=== PATIENT | female | born 1950 | race Caucasian/White ===

== ENCOUNTER 2020-04-30 16:31 | Outpatient (CLI) | payer MEDICARE, OTHER, SELFPAY ==
--- NOTE | ~2020-04-30 | MM_ITS ---
EXAMINATION: MM screening latesha BI w miguel HISTORY: Screening mammogram TECHNIQUE: Craniocaudal and mediolateral oblique 3-D tomosynthesis images were obtained and synthetic 2-D images were generated. CAD analysis was submitted and interpreted. COMPARISON: 12/06/2017, 11/08/2017, 01/04/2016, 11/06/2015 BREAST PARENCHYMAL COMPOSITION: There are scattered areas of fibroglandular density. FINDINGS: Scattered benign-appearing calcifications are present. There is no evidence of suspicious m ass, calcification, or architectural distortion to suggest malignancy in either breast. There has bee n no suspicious interval change. IMPRESSION: 1. No mammographic evidence of malignancy. 2. Recommend routine screening mammography in one year. BI-RADS Category 2: Benign finding(s). Reviewed, dictated and finalized at location A.
== END 2020-04-30 16:32 | disposition home or self-care (01) ==
PROVIDERS: PCP Family Medicine; Visit Provider Family Medicine
DX: Z12.31 Encounter for screening mammogram for malignant neoplasm of breast (principal)
CPT/HCPCS: 77063; 77067

== ENCOUNTER → 2020-06-11 14:19 | Outpatient (CLI) | payer MEDICARE, OTHER, SELFPAY ==
--- NOTE | ~2020-06-11 | CT_ITS ---
EXAMINATION: CT abdomen w con DATE: 06/11/2020 14:53 INDICATION: Left upper quadrant abdominal pain. Epigastric swelling, mass or lump TECHNIQUE: Computed tomography (CT) of the abdomen was performed with 100 cc Omnipaque 350 intravenou s contrast. Automated exposure control and iterative reconstruction technique were employed. Exam dos e: 343.59 mGy-cm total exam DLP. COMPARISON: 07/22/2015 CT abdomen pelvis FINDINGS: There is focal discoid scarring with calcification in the posterior right lung base, right lower lobe. The lower lung zones are clear of active infiltrate or consolidation. Normal heart size. No pericardial or pleural effusion. The liver, gallbladder, bile ducts, pancreas, pancreatic duct, pancreatic calcification. There are mu ltiple calcified splenic granulomas. Normal splenic size. No adrenal mass lesion. There are scattered right renal cysts, the largest approximately 11 mm. There is a small upper pole l eft renal cyst and an approximate 6.2 cm lower pole left renal cyst. No urinary tract calculus or hydroureteronephrosis is detected. There is atherosclerotic calcification but normal caliber of the abdominal aorta. No intraperitoneal or retroperitoneal mass lesion or adenopathy or ascites. Diverticulosis of left and right colon. No bowel obstruction. Small fat-containing umbilical hernia. There is degenerative change of the apophyseal joints with associated grade 1 anterolisthesis at at L3-4 and L4-5. There is severe degenerative disc disease at L5-S1 with associated minimal retrolisthesis. IMPRESSION: Bilateral renal cysts Diverticulosis of left and right colon Reviewed, dictated and finalized at Location A. Reviewed, dictated and finalized at location A. RUCTIONAL MANAGER
[2020-06-11 14:39] LABS: Estimated Glomerular Filt Rate 55
== END ==
PROVIDERS: PCP Family Medicine; Visit Provider Family Medicine
DX: R19.06 Epigastric swelling, mass or lump (principal); N28.1 Cyst of kidney, acquired; K57.30 Diverticulosis of large intestine without perforation or abscess without bleeding
CPT/HCPCS: 74160; Q9967

== ENCOUNTER → 2021-06-02 14:57 | Outpatient (CLI) | payer MEDICARE, OTHER, SELFPAY ==
--- NOTE | ~2021-06-02 | MR_ITS ---
EXAMINATION: MR brain/brain stem wo/w con EXAM DATE: 06/02/2021 16:31 INDICATION: Benign neoplasm of cerebral meninges. TECHNIQUE: Magnetic resonance imaging (MRI) of the brain/brain stem obtained without contrast. Sagit vishal T1, axial diffusion, gradient echo (T2*), T1, T2, FLAIR sequences obtained. Patient was then inj ected with 14 cc intravenous Multihance contrast. Axial and coronal postcontrast T1 weighted sequence s obtained. Comparison is made to prior examination from 07/26/2013. FINDINGS: There is an extra-axial mass overlying the right frontal lobe consistent with meningioma me asuring about 1.2 cm in thickness by 2.3 cm diameter. The size and appearance to this is not signific antly changed compared to 2013. This enhances avidly as would be expected. There is another much smal ler extra-axial lesion in the right supraclinoid region probably meningioma, may have minimally incre ased in size, measuring about 6 x 11 mm as measured on the coronal sequence. No other areas of abnorm al enhancement. There is been mild progression in the mild to moderate microangiopathy There are no areas of restrict ed diffusion to suggest acute infarction. There is no acute hemorrhage seen on the T2*, a hemosideri n sensitive sequence. No intraparenchymal brain mass. The ventricles are normal in size. There are no extra-axial collections. Flow voids are seen in the cerebral arteries on the T2-weighted sequence s consistent with their expected patency. The orbits are unremarkable. Soft tissue is unremarkable. IMPRESSION: 1. 2 extra-axial lesions consistent with meningiomas, largest stable in smallest may have minimally increased in size compared to 2012. 2. 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 Reviewed, dictated and finalized at location A. IMPRESSION: 1. 2 extra-axial lesions consistent with meningiomas, largest stable in [place] st may have minimally increased in size compared to 2012. 2. 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
[2021-06-02 15:47] LABS: Estimated Glomerular Filt Rate 45
== END ==
PROVIDERS: PCP Family Medicine
DX: D32.0 Benign neoplasm of cerebral meninges (principal)
CPT/HCPCS: 70553; A9577

== ENCOUNTER → 2021-07-28 13:53 | Outpatient (CLI) | payer MEDICARE, OTHER, SELFPAY ==
--- NOTE | ~2021-07-28 | MM_ITS ---
EXAMINATION: MM screening latesha BI w miguel HISTORY: Screening TECHNIQUE: Craniocaudal and mediolateral oblique 3-D tomosynthesis images were obtained and synthetic 2-D images were generated. CAD analysis was submitted and interpreted. COMPARISON: Comparison to multiple prior studies sequentially, with oldest reviewed study dated 11/08. BREAST PARENCHYMAL COMPOSITION: There are scattered areas of fibroglandular density. FINDINGS: There is no evidence of suspicious mass, calcification, or architectural distortion to sugg est malignancy in either breast. There has been no suspicious interval change. IMPRESSION: 1. No mammographic evidence of malignancy. 2. Recommend routine screening mammography in one year. BI-RADS Category 1: Negative Reviewed, dictated and finalized at location A. DRIER OPERATOR
--- NOTE | ~2021-07-28 | DEXA_ITS ---
Bone Density Report Name: VALENTE URIOSTEGUI Age: 70 Sex: Female Ethnicity: White Date of : 1950 Indication: postmenopausal; screening for osteoporosis; height loss; Referring Provider: CHATO MURCIA Study: Bone densitometry was performed. Exam Date: July 28, 2021 Accession number: [id number] Bone Density: Region BMD T-score Z-score Classification AP Spine (L1-L4) 0.942 -1.0 1.1 Normal Femoral Neck (Left) 0.741 -1.0 0.8 Normal Total Hip (Left) 0.881 -0.5 0.9 Normal Femoral Neck (Right) 0.655 -1.7 0.0 Osteopenia Total Hip (Right) 0.820 -1.0 0.4 Normal Total Hip Mean 0.851 -0.8 0.7 Normal World Health Organization criteria for BMD impression classify patients as: Normal (T-score at or above -1.0), Osteopenia (T-score between -1.0 and -2.5), or Osteoporosis (T-score at or below -2.5). 10-year Fracture Risk(1): Major Osteoporotic Fracture 10% Hip Fracture 1.5% Reported Risk Factors: [place] (), Neck BMD=0.655, BMI=28.6 (1) FRAX(R) Version 3.08. Fracture probability calculated for an untreated patient. Fracture probability may be lower if the patient has received treatment. Previous Exams: Region Exam Age BMD T-score BMD Change BMD Change Date g/cm2 vs Baseline vs Previous AP Spine(L1-L4) 07/28/2021 70 0.942 -1.0 -0.101* -0.101* 11/19/2007 57 1.044 0.0 Total Hip(Left) 07/28/2021 70 0.881 -0.5 -0.138* -0.138* 11/19/2007 57 1.020 0.6 Total Hip(Right) 07/28/2021 70 0.820 -1.0 -0.186* -0.186* 11/19/2007 57 1.006 0.5 *Denotes significance at 95% confidence level, LSC for AP Spine = 0.022 g/cm2, LSC for Total Hip = 0.027 g/cm2 Clinical Information Provided by Patient: Patient maximum height was 64.0 Menopause Age: 46 No regular weight bearing exercise Does not regularly consume dairy products Onset of menses at age 15 Number of children 2 Impression: The patient has low bone mass, based on the Right Femoral Neck T-score. The patient has an estimated ten-year risk of hip fracture of 1.5% and an estimated ten-year risk of major fracture of 10%, based on the WHO FRAX algorithm. The BMD for the AP Spine(L1-L4) decreased, changing by -0.101 since the last DXA exam. The BMD for the Total Hip(Left) decreased, changing by -0.138 since the last DXA exam. The BMD for the Total Hip(Right) decreased, changing by -0.186 since the last DXA exam. Yuliau
--- NOTE | ~2021-07-28 | XR_ITS ---
EXAMINATION: XR chest 2V DATE: 07/28/2021 15:03 INDICATION: Chronic cough. TECHNIQUE: Frontal and lateral views of the chest were obtained. COMPARISON: Chest 2 views 04/15/2019, CT abdomen 06/11/2020 FINDINGS: A calcified right lung nodule and calcified right hilar and mediastinal lymph nodes are con sistent with old granulomatous disease. No pleural effusion or pneumothorax. The heart size is normal . IMPRESSION: 1. No acute cardiopulmonary disease. Reviewed, dictated and finalized at location D. RAM ANALYST
--- NOTE | ~2021-07-28 | XR_ITS ---
EXAMINATION: XR knee RT min 4V DATE: 07/28/2021 15:03 INDICATION: Age-related osteoporosis. Right knee instability. TECHNIQUE: 4 views of right knee including standing views were obtained. COMPARISON: None. FINDINGS: Bone alignment is normal. No fracture. There is mild tricompartmental osteoarthritis. There is chondrocalcinosis of the menisci. No knee joint effusion. IMPRESSION: 1. Mild right knee osteoarthritis. Reviewed, dictated and finalized at location D. IER SUPERVISOR
== END ==
PROVIDERS: PCP Family Medicine; Visit Provider Family Medicine
DX: Z12.31 Encounter for screening mammogram for malignant neoplasm of breast (principal); M81.0 Age-related osteoporosis without current pathological fracture; Z13.820 Encounter for screening for osteoporosis; Z78.0 Asymptomatic menopausal state; M17.11 Unilateral primary osteoarthritis, right knee; M85.851 Other specified disorders of bone density and structure, right thigh
CPT/HCPCS: 71046; 73564; 77063; 77067; 77080

== ENCOUNTER 2021-11-05 01:19 | Day surgery (SDC) | payer MEDICARE, OTHER, SELFPAY ==
[2021-10-28 14:01] VITALS: BMI 26.6
--- NOTE | 2021-11-05 12:40 | WPDANESEPPF ---
Anes - Initial Pre Proc Eval Procedure: Operation Date: 11/05/21 13:30 Proposed Procedures p Esophagogastroduodenoscopy & Screening Colonoscopy - Humphrey Gibson MD Date/Time: 11/05/21 12:40 Surgeon: Humphrey Gibson MD Pre Op Diagnosis: hx of colon polyps, epigastric pain Patient Data Age: 71 Gender: F Height: 1.57 m Weight: 66 kg Allergies Allergy/AdvReac Type Severity Reaction Status Date / Time benazepril Allergy Severe Other Verified 11/05/21 12:28 erythromycin base Allergy Severe Abdominal Verified 11/05/21 12:28 Pain influenza virus vaccine, Allergy Severe Other Verified 11/05/21 12:28 specific nitrofurantoin Allergy Severe Chest Pain Verified 11/05/21 12:28 ondansetron Allergy Severe violent Verified 11/05/21 12:28 wretching Penicillins Allergy Severe Hives / Verified 11/05/21 12:28 Red Face pregabalin Allergy Severe inability Verified 11/05/21 12:28 to urinate after two doses azithromycin Allergy Intermediate Hives Verified 10/28/21 14:07 cefadroxil Allergy Intermediate Rash Verified 11/05/21 12:28 GREG Inhibitors Allergy Unknown Unknown Verified 11/05/21 12:28 amlodipine Allergy Unknown Unknown Verified 11/05/21 12:28 Cephalosporins Allergy Unknown Unknown Verified 09/16/21 14:31 poison jsuto extract Allergy Blister Verified 11/05/21 12:28 potassium AdvReac Severe Diarrhea Verified 11/05/21 12:28 rofecoxib AdvReac Severe severe Verified 11/05/21 12:28 abdominal pain omeprazole AdvReac Intermediate angina, Verified 11/05/21 12:28 muscle pain left thigh, left hip pain, simethicone AdvReac Diarrhea Verified 11/05/21 12:28 Contrast Media Allergy Severe Other Uncoded 11/05/21 12:28 CALCIUMCHANNEL Allergy Unknown Unknown Uncoded 06/01/21 13:50 Home Medications Medication Instructions Recorded Confirmed Type carvedilol 12.5 mg tablet 12.5 mg PO TID tablet 09/02/19 10/28/21 History diazepam 5 mg tablet 2.5 mg PO TID PRN tablet 09/02/19 10/28/21 History losartan 25 mg tablet 50 mg PO BID 09/02/19 11/05/21 History pravastatin 10 mg tablet 10 mg PO DAILY 09/02/19 10/28/21 History hydrochlorothiazide 12.5 mg tablet See Rx Instructions .ROUTE 04/15/21 10/28/21 Rx .COMPLEX #90 tablet famotidine 20 mg tablet 20 mg PO Q12H #180 tablet 06/01/21 10/28/21 Rx pantoprazole 40 mg tablet,delayed 40 mg PO QAM #90 tablet 06/01/21 10/28/21 Rx release calcium carbonate 260 mg calcium 260 mg PO BID tablet 09/16/21 10/28/21 History (650 mg) chewable tablet cholecalciferol (vitamin D3) 1,000 unit PO DAILY 10/28/21 10/28/21 History [Vitamin D3] meloxicam 15 mg PO DAILY PRN 10/28/21 10/28/21 History acetaminophen [Tylenol Ex Str 500 mg PO Q6H PRN 11/05/21 11/05/21 History Arthritis Pain] etodolac [Lodine] 400 mg PO BID PRN 11/05/21 11/05/21 History metformin 500 mg PO DAILY 11/05/21 11/05/21 History Patient hx anesthesia problems: none Family hx anesthesia problems: none Results Review: All pre-operative results and documents have been reviewed as part of the pre-operative evaluation. [facility] Surgical History Surgical History (Updated 09/16/21 @ 14:39 by Christiana Sims [facility]) History of lumpectomy History of spinal surgery Family History Family History Father Hypertension Carcinoma of colon Malignant neoplasm of prostate Mother Hypertension Grandparent Family history of cardiovascular disease Cerebrovascular accident Social History Social History Smoking status: Never smoker Second hand tobacco smoke exposure: No Alcohol intake: never Substance use: never Substance use type: does not use Living arrangements: with family Spiritual care concerns: No Anes - Eval Final PreProcedure Day of Procedure 11/05/21 12:40 Patient weight: overweight Heart: regular rate and rhythm Lungs: clear to aus
[2021-11-05] MEDS: LACTATED RINGERS 1,000 ML 150 ML IV CONT (12:56)
[2021-11-05 12:57] VITALS: BP 178/90; PULSE 54; RESP 20; TEMP 37.2; O2SAT 98; BMI 26.4
[2021-11-05 13:06] LABS: Glucose Point of Care 99 mg/dl (65-105)
--- NOTE | 2021-11-05 13:06 | WPDGICN ---
Assessment and Plan Assessment and plan (1) Family history of colon cancer in father: Code(s): Z80.0 - Family history of malignant neoplasm of digestive organs Status: Acute Assessment and Plan: Patient's father had colorectal cancer. For this reason screening colonoscopy at 5 year intervals is advised. This is anticipated today. (2) History of colon polyps: Code(s): Z86.010 - Personal history of colonic polyps Status: Acute Assessment and Plan: Patient has a history of colon polyps being identified on previous exam apparently performed [address] Hawthorne. Follow-up will be performed at this time. (3) GERD (gastroesophageal reflux disease): Code(s): K21.9 - Gastro-esophageal reflux disease without esophagitis Status: Acute Assessment and Plan: Patient has a history of esophageal web dilated 2013. There was a question of Barretts esophagus and GE reflux in the past. Currently maintained on pantoprazole supplemented with famotidine. Further recommendations will be given after endoscopy. This appears unlikely to correlate with her left posterior chest pain however. (4) Brain tumor: Code(s): D49.6 - Neoplasm of unspecified behavior of brain Status: Acute GI Consult Note Consult date/time: 11/05/21 13:06 HPI: Helena Kc is a 71 year old female Presents for colonoscopy and EGD. Patient currently complains of left posterior low chest pain. Pain is somewhat poorly described. It is uncertain whether or is related to the GI tract. She currently is receiving a trial of Protonix and famotidine with no clear benefit for this discomfort. Patient gives a history of EGD in 2013 that revealed distal esophageal web. Apparently there was a question of Barretts esophagus at that time. She presents today for follow-up EGD. Additionally patient has a family history of colorectal cancer in her father. Most recent colonoscopy 2013 Revealed benign colon polyp. Patient presents today for follow-up colonoscopy. She has intermittently had diarrhea in the past. She is uncertain as to the etiology. At 1 point told she may have irritable bowel syndrome. Previously was on metformin it was felt this may contribute to her diarrhea as well. Review of Systems Review of Systems: All systems reviewed & are unremarkable except as noted in HPI and below [facility] Surgical History Surgical History (Updated 09/16/21 @ 14:39 by Christiana Sims [facility]) History of lumpectomy History of spinal surgery Family History Family History Father Hypertension Carcinoma of colon Malignant neoplasm of prostate Mother Hypertension Grandparent Family history of cardiovascular disease Cerebrovascular accident Social History Social History Smoking status: Never smoker Second hand tobacco smoke exposure: No Alcohol intake: never Substance use: never Substance use type: does not use Living arrangements: with family Spiritual care concerns: No Meds Home Medications and Allergies Home Medications Medication Instructions Recorded Confirmed Type carvedilol 12.5 mg tablet 12.5 mg PO TID tablet 09/02/19 10/28/21 History diazepam 5 mg tablet 2.5 mg PO TID PRN tablet 09/02/19 10/28/21 History losartan 25 mg tablet 50 mg PO BID 09/02/19 11/05/21 History pravastatin 10 mg tablet 10 mg PO DAILY 09/02/19 10/28/21 History hydrochlorothiazide 12.5 mg tablet See Rx Instructions .ROUTE 04/15/21 10/28/21 Rx .COMPLEX #90 tablet famotidine 20 mg tablet 20 mg PO Q12H #180 tablet 06/01/21 10/28/21 Rx pantoprazole 40 mg tablet,delayed 40 mg PO QAM #90 tablet 06/01/21 10/28/21 Rx release calcium carbonate 260 mg calcium 260 mg PO BID tablet 09/16/21 10/28/21 History (650 mg) chewable tablet cholecalciferol (vitamin D3) 1,000 unit PO DAILY 10/28/21 10/28/21 Histo
--- NOTE | 2021-11-05 13:41 | SUR.OPER ---
EGD START: 1322; END: 1324. COLONOSCOPY START: 1329; END: 1340.
[2021-11-05 13:42] VITALS: BP 114/60; PULSE 59; RESP 20; O2SAT 97
[2021-11-05 13:52] VITALS: BP 133/69; PULSE 48; RESP 13; O2SAT 100
[2021-11-05 14:02] VITALS: BP 156/80; PULSE 48; RESP 15; O2SAT 100
== END 2021-11-05 14:40 | disposition home or self-care (01) ==
PROVIDERS: PCP Family Medicine; Visit Provider Internal Medicine Gastroenterology
PROC: 0DJ08ZZ Inspection of Upper Intestinal Tract, Via Natural or Artificial Opening Endoscopic (ICD-10-PCS; CPT 43235; principal; 2021-11-05 13:30)
DX: Z12.11 Encounter for screening for malignant neoplasm of colon (principal); R07.89 Other chest pain; K21.00 Gastro-esophageal reflux disease with esophagitis, without bleeding; K57.30 Diverticulosis of large intestine without perforation or abscess without bleeding; D49.6 Neoplasm of unspecified behavior of brain; K64.8 Other hemorrhoids; Z79.899 Other long term (current) drug therapy; Z80.0 Family history of malignant neoplasm of digestive organs
CPT/HCPCS: 43239; G0105; 82948; 87081; J2001; J2704; J7120

== ENCOUNTER 2022-01-12 15:31 | Emergency (ER) | payer MEDICARE, OTHER, SELFPAY ==
[2022-01-12 15:44] VITALS: BP 171/94; PULSE 50; RESP 18; TEMP 37.2; O2SAT 99
--- NOTE | 2022-01-12 15:44 | ED.EAR ---
HPI - Ear Problem General Chief complaint: Ear Stated complaint: Rt Ear Pain and unable to hear Time Seen by Provider: 01/12/22 15:44 Source: patient Mode of arrival: ambulatory Limitations: no limitations History of Present Illness HPI Narrative: 71-year-old female presents with complaint of decreased hearing, pain to right ear for several days. Reports intermittent right ear pain, tinnitus, nasal congestion for the past month. Has spoke to her PCP regarding symptoms and was told to use Sudafed. Reports she had increased pain to right ear last night. Is having difficulty hearing to right ear. No recent fever. Has had several negative home COVID test. All systems reviewed and negative except as noted above. Related Data Home Medications Medication Instructions Recorded Confirmed carvedilol 12.5 mg tablet (Coreg) 12.5 mg PO TID 09/02/19 01/12/22 diazepam 5 mg tablet 2.5 mg PO TID PRN Anxiety 09/02/19 01/12/22 losartan 25 mg tablet 50 mg PO BID 09/02/19 01/12/22 pravastatin 10 mg tablet 10 mg PO DAILY 09/02/19 01/12/22 calcium carbonate 260 mg calcium 260 mg PO BID 09/16/21 01/12/22 (650 mg) chewable tablet (Mike-Mint) cholecalciferol (vitamin D3) 25 1,000 unit PO DAILY 10/28/21 01/12/22 mcg (1,000 unit) tablet (Vitamin D3) meloxicam 15 mg tablet 15 mg PO DAILY PRN Pain 10/28/21 01/12/22 acetaminophen 500 mg tablet 500 mg PO Q6H PRN Pain 11/05/21 01/12/22 famotidine 20 mg tablet 20 mg PO .PRN 11/29/21 01/12/22 pantoprazole 40 mg tablet,delayed 80 mg PO QAM 11/29/21 01/12/22 release Allergies Allergy/AdvReac Type Severity Reaction Status Date / Time benazepril Allergy Severe Other Verified 11/29/21 13:36 erythromycin base Allergy Severe Abdominal Verified 11/29/21 13:36 Pain influenza virus vaccine, Allergy Severe Other Verified 11/29/21 13:36 specific nitrofurantoin Allergy Severe Chest Pain Verified 11/29/21 13:36 ondansetron Allergy Severe violent Verified 11/29/21 13:36 wretching Penicillins Allergy Severe Hives / Verified 11/29/21 13:36 Red Face pregabalin Allergy Severe inability Verified 11/29/21 13:36 to urinate after two doses azithromycin Allergy Intermediate Hives Verified 11/29/21 13:36 cefadroxil Allergy Intermediate Rash Verified 11/29/21 13:36 GREG Inhibitors Allergy Unknown Unknown Verified 11/29/21 13:36 amlodipine Allergy Unknown Unknown Verified 11/29/21 13:36 Cephalosporins Allergy Unknown Unknown Verified 11/29/21 13:36 poison justo extract Allergy Blister Verified 11/29/21 13:36 potassium AdvReac Severe Diarrhea Verified 11/29/21 13:36 rofecoxib AdvReac Severe severe Verified 11/29/21 13:36 abdominal pain omeprazole AdvReac Intermediate angina, Verified 11/29/21 13:36 muscle pain left thigh, left hip pain, simethicone AdvReac Diarrhea Verified 11/29/21 13:36 Contrast Media Allergy Severe Other Uncoded 11/29/21 13:36 CALCIUMCHANNEL Allergy Unknown Unknown Uncoded 11/29/21 13:36 Review of Systems Review of Systems: CONSTITUTIONAL: Denies fever, chills, or sweats. EYES: Denies visual changes, redness, or discharge. ENT: Denies rhinorrhea, congestion, sore throat. Reports right ear pain, decreased hearing, intermittent tinnitus. CARDIOVASCULAR: Denies chest pain, palpitations, or edema. RESPIRATORY: Denies cough or dyspnea. GASTROINTESTINAL: Denies abdominal pain, nausea, vomiting, or diarrhea. GENITOURINARY: Denies dysuria or hematuria. SKIN: Denies rash or itching. MUSCULOSKELETAL: Denies back pain, joint pain, or myalgia. NEUROLOGIC: Denies headache, numbness, or weakness. PSYCHIATRIC: Denies anxiety or depression. All other systems reviewed are negative, except as documented in HPI. [facility] Surgical History Surgical History History of lumpectomy History of spinal surgery Family History Family History Fa
== END 2022-01-12 16:15 | disposition home or self-care (01) ==
PROVIDERS: Emergency Provider Nurse Practitioner Family; PCP Family Medicine
DX: H65.91 Unspecified nonsuppurative otitis media, right ear (principal); H69.91 Unspecified Eustachian tube disorder, right ear; E78.00 Pure hypercholesterolemia, unspecified; I10 Essential (primary) hypertension; K21.9 Gastro-esophageal reflux disease without esophagitis; K22.70 Barrett's esophagus without dysplasia; Z85.828 Personal history of other malignant neoplasm of skin
CPT/HCPCS: 99213; G0463

== ENCOUNTER 2022-07-15 03:06 | Emergency (ER) | payer MEDICARE, OTHER, SELFPAY ==
[2022-07-15] VITALS (32 sets, daily range): BP systolic 158–208; BP diastolic 79–97; PULSE 45–58; RESP 8–23; TEMP 36.4; O2SAT 94–100
--- NOTE | 2022-07-15 03:36 | ECG_ITS ---
Measurements Intervals [place] Rate: 46 P: 48 MT: 158 QRS: 6 QRSD: 89 T: 12 QT: 470 QTc: 412 Interpretive Statements SINUS BRADYCARDIA NONSPECIFIC ST & T-WAVE ABNORMALITY NO PREVIOUS ECG AVAILABLE FOR COMPARISON Electronically Signed On 07-15-2022 10:21:01 CAR ELECT[employer]ICS INST[employer]ER by Nikko Torres M.D.
[2022-07-15 06:21] LABS: Basophils Absolute Auto 0.1 K/mm3 (0.0-0.1); Basophils Percent Auto 0.8 % (0.2-1.2); Eosinophils Absolute Auto 0.1 K/mm3 (0-0.3); Eosinophils Percent Auto 0.7 % (0-4.4); Hematocrit 42.2 % (37.0-47.0); Hemoglobin 14.1 g/dL (12.0-15.0); Immature Granulocyte Absolute 0.03 K/mm3 (0.00-0.031); Immature Granulocyte Percent A 0.3 % (0-0.5); Lymphocytes Absolute Auto 2.35 K/mm3 (0.9-3.2); Mean Corpuscular HGB Conc 33.4 g/dl (32-36); Mean Corpuscular Hemoglobin 30.3 pg (26-34); Mean Corpuscular Volume 90.8 fl (80-100); Mean Platelet Volume 12.6 fl (7.4-10.4); Monocytes Absolute Auto 0.6 K/mm3 (0.1-0.6); Monocytes Percent Auto 5.6 % (2.6-8.5); Neutrophils Absolute Auto 7.5 K/mm3 (1.3-6.7); Neutrophils Percent Auto 70.6 % (45.5-73.1); Platelet Count Result 220 k/mm3 (150-375); Red Blood Count 4.65 M/mm3 (4.2-5.4); Red Cell Distribution Width 12.9 % (11.5-14.5); White Blood Count 10.7 K/mm3 (4.5-10.0)
[2022-07-15 06:38] LABS: Alanine Aminotransferase 18 U/L (6-35); Albumin Level 4.6 g/dL (3.5-5.1); Alkaline Phosphatase 80 U/L (38-126); Anion Gap 9 mmol/L (8-16); Aspartate Amino Transferase 28 U/L (14-36); Bilirubin,Total 0.9 mg/dL (0.2-1.3); Blood Urea Nitrogen 14 mg/dL (7-17); Calcium 9.5 mg/dL (8.4-10.2); Carbon Dioxide 32 mmol/L (22-30); Chloride 100 mmol/L (98-107); Estimated Glomerular Filt Rate > 60; Glucose 130 mg/dL (65-110); Potassium 2.8 mmol/L (3.4-5.0); Sodium 141 mmol/L (137-145)
[2022-07-15 07:02] LABS: Add Urine Microscopic? YES; Appearance Urine Cloudy (Clear); Bilirubin Urine 1+ (Negative); Blood Urine 2+ (Negative); Color Urine Yellow (Yellow); Glucose Urine UA Negative (Negative); Ketones Urine 2+ mg/dL (Negative); Leukocyte Esterase Ur Trace LEU/UL (Negative); Nitrate Urine Positive (Negative); Protein Urine 2+ mg/dL (Negative); Specific Grav Ur 1.025 (1.001-1.035); pH Urine 5.5 (5.0-9.0)
[2022-07-15 07:08] LABS: Amorphous Sediment Urine Few; Bacteria Urine Trace /hpf; Mucus Urine Moderate /lpf; RBC Urine 21-50 /hpf (0-2); Squamous Epithelial Cell Urine Many /hpf (Few); WBC Urine >75 /hpf
[2022-07-15 07:36] LABS: Magnesium 2.2 mg/dL (1.6-2.3); Phosphorus 2.7 mg/dL (2.5-4.5)
--- NOTE | 2022-07-15 08:07 | ED.GENADULT ---
HPI - General Adult General Chief complaint: Recheck/Abnormal Lab/Rx Stated complaint: high blood pressure Time Seen by Provider: 07/15/22 07:48 History of Present Illness HPI narrative: 71-year-old female with past medical history of hypertension presents to our department for evaluation of hypertension at home and twitching in her eyes. Upon arrival patient was noted to have a potassium of 2.8. Labs also indicative of urinary tract infection. Unfortunately we are boarding patients in almost every bed in our ER in the floor is quite full. We will begin potassium repletion as well as magnesium and antibiotic coverage for her UTI. Blood pressure has improved greatly and will not warrant emergency treatment at this time. Patient is asymptomatic during the time of my evaluation. She does admit to taking hydrochlorothiazide for her blood pressure and that her p.o. intake has been greatly decreased recently. Related Data Home Medications Medication Instructions Recorded Confirmed carvedilol 12.5 mg tablet (Coreg) 12.5 mg PO TID 09/02/19 01/12/22 losartan 25 mg tablet 50 mg PO BID 09/02/19 01/12/22 calcium carbonate 260 mg calcium 260 mg PO BID 09/16/21 01/12/22 (650 mg) chewable tablet (Mike-Mint) cholecalciferol (vitamin D3) 25 1,000 unit PO DAILY 10/28/21 01/12/22 mcg (1,000 unit) tablet (Vitamin D3) meloxicam 15 mg tablet 15 mg PO DAILY PRN Pain 10/28/21 01/12/22 acetaminophen 500 mg tablet 500 mg PO Q6H PRN Pain 11/05/21 01/12/22 famotidine 20 mg tablet 20 mg PO .PRN 11/29/21 01/12/22 Allergies Allergy/AdvReac Type Severity Reaction Status Date / Time benazepril Allergy Severe Other Verified 07/15/22 07:44 erythromycin base Allergy Severe Abdominal Verified 07/15/22 07:44 Pain influenza virus vaccine, Allergy Severe Other Verified 07/15/22 07:44 specific nitrofurantoin Allergy Severe Chest Pain Verified 07/15/22 07:44 ondansetron Allergy Severe violent Verified 07/15/22 07:44 wretching Penicillins Allergy Severe Hives / Verified 07/15/22 07:44 Red Face pregabalin Allergy Severe inability Verified 07/15/22 07:44 to urinate after two doses azithromycin Allergy Intermediate Hives Verified 07/15/22 07:44 cefadroxil Allergy Intermediate Rash Verified 07/15/22 07:44 GREG Inhibitors Allergy Unknown Unknown Verified 07/15/22 07:44 amlodipine Allergy Unknown Unknown Verified 07/15/22 07:44 Cephalosporins Allergy Unknown Unknown Verified 07/15/22 07:44 poison justo extract Allergy Blister Verified 07/15/22 07:44 potassium AdvReac Severe Diarrhea Verified 07/15/22 07:44 rofecoxib AdvReac Severe severe Verified 07/15/22 07:44 abdominal pain omeprazole AdvReac Intermediate angina, Verified 07/15/22 07:44 muscle pain left thigh, left hip pain, simethicone AdvReac Diarrhea Verified 07/15/22 07:44 Contrast Media Allergy Severe Other Uncoded 07/15/22 07:44 CALCIUMCHANNEL Allergy Unknown Unknown Uncoded 07/15/22 07:44 Review of Systems Review of Systems: CONSTITUTIONAL: Denies fever, chills, or sweats. EYES: Denies visual changes, redness, or discharge. ENT: Denies rhinorrhea, congestion, sore throat, or otalgia. CARDIOVASCULAR: Denies chest pain, palpitations, or edema. RESPIRATORY: Denies cough or dyspnea. GASTROINTESTINAL: Denies abdominal pain, nausea, vomiting, or diarrhea. GENITOURINARY: Denies dysuria or hematuria. SKIN: Denies rash or itching. MUSCULOSKELETAL: Denies back pain, joint pain, or myalgia. NEUROLOGIC: Denies headache, numbness, or weakness. PSYCHIATRIC: Denies anxiety or depression. [facility] Surgical History Surgical History History of lumpectomy History of spinal surgery Family History Family History Father Hypertension Carcinoma of colon Malignant neoplasm of prostate Mother Hypertension Grandparent Family history of
[2022-07-15] MEDS: POTASSIUM CHLORIDE 20 MEQ PACKET (FOR LIQUID) 40 MEQ PO (08:32)
[2022-07-15] MEDS: POTASSIUM CHLORIDE INJ 40 MEQ in SODIUM CHLORIDE 0.9% IV 500 ML 130 MEQ IVPB (08:33)
[2022-07-15] MEDS: MAGNESIUM SULF 2 GM/WATER 50ML 2 GM/50 ML BAG IVPB (09:20)
[2022-07-15] MEDS: SULFAMETHOXAZOLE/TRIMETHOPRIM 800/160 MG DS TABLET 1 TAB PO (09:20)
--- NOTE | 2022-07-15 13:59 | PC.NURSE ---
Pt is resting on stretcher with call light in reach. Awaiting further orders or disposition.
== END 2022-07-15 14:26 | disposition home or self-care (01) ==
PROVIDERS: Emergency Medicine; Nurse Practitioner Family; Emergency Provider Emergency Medicine; PCP Family Medicine
DX: N39.0 Urinary tract infection, site not specified (principal); E87.6 Hypokalemia; I10 Essential (primary) hypertension; R00.1 Bradycardia, unspecified; R94.31 Abnormal electrocardiogram [ECG] [EKG]
CPT/HCPCS: 36415; 80053; 81001; 83735; 84100; 85025; 87077; 87086; 87186; 93005; 96365; 96366; 96368; 99284; A9270; J3475; J3480; J7040

== ENCOUNTER 2022-07-22 19:17 | Emergency (ER) | payer MEDICARE, OTHER, SELFPAY ==
--- NOTE | ~2022-07-22 | XR_ITS ---
XR tibia fibula RT 2V DATE: 07/22/2022 19:41 INDICATION: Proximal right lower leg pain after a fall TECHNIQUE: AP and lateral views COMPARISON: None FINDINGS: There is diffuse osteopenia. There is superior pole patellar enthesopathy at the quadriceps tendon insertion and periarticular spu rring of the patella. Mild chondrocalcinosis is suggested at the knee joint. No fracture or dislocation, periosteal reaction or bone destruction. Normal alignment at the knee and ankle joints. IMPRESSION: Osteopenia; no fracture or dislocation Reviewed, dictated and finalized at location A. [employer] INS[employer]
--- NOTE | 2022-07-22 19:38 | ED.LOWEXIN ---
HPI - Extremity Injury (Lower) General Stated Complaint: rt leg injury Source: patient Mode of arrival: ambulatory Limitations: no limitations History of Present Illness HPI Narrative: 71 y/o female with hx diabetes and HTN presented for c/o right leg pain after a fall this evening at home. States she slipped down the last [address] and twisted her body while attempting to stop the fall. She denies hitting her head or LOC. Reports pain to the lateral right lower leg just below the knee. Denies swelling, bruising, redness . Pain only with ambulating. Denies numbness, tingling or weakness of the leg. Related Data Home Medications Medication Instructions Recorded Confirmed carvedilol 12.5 mg tablet (Coreg) 12.5 mg PO TID 09/02/19 01/12/22 calcium carbonate 260 mg calcium 260 mg PO BID 09/16/21 01/12/22 (650 mg) chewable tablet (Mike-Mint) cholecalciferol (vitamin D3) 25 1,000 unit PO DAILY 10/28/21 01/12/22 mcg (1,000 unit) tablet (Vitamin D3) meloxicam 15 mg tablet 15 mg PO DAILY PRN Pain 10/28/21 01/12/22 acetaminophen 500 mg tablet 500 mg PO Q6H PRN Pain 11/05/21 01/12/22 famotidine 20 mg tablet 20 mg PO .PRN 11/29/21 01/12/22 Allergies Allergy/AdvReac Type Severity Reaction Status Date / Time benazepril Allergy Severe Other Verified 07/15/22 07:44 erythromycin base Allergy Severe Abdominal Verified 07/15/22 07:44 Pain influenza virus vaccine, Allergy Severe Other Verified 07/15/22 07:44 specific nitrofurantoin Allergy Severe Chest Pain Verified 07/15/22 07:44 ondansetron Allergy Severe violent Verified 07/15/22 07:44 wretching Penicillins Allergy Severe Hives / Verified 07/15/22 07:44 Red Face pregabalin Allergy Severe inability Verified 07/15/22 07:44 to urinate after two doses azithromycin Allergy Intermediate Hives Verified 07/15/22 07:44 cefadroxil Allergy Intermediate Rash Verified 07/15/22 07:44 GREG Inhibitors Allergy Unknown Unknown Verified 07/15/22 07:44 amlodipine Allergy Unknown Unknown Verified 07/15/22 07:44 Cephalosporins Allergy Unknown Unknown Verified 07/15/22 07:44 poison justo extract Allergy Blister Verified 07/15/22 07:44 potassium AdvReac Severe Diarrhea Verified 07/15/22 07:44 rofecoxib AdvReac Severe severe Verified 07/15/22 07:44 abdominal pain omeprazole AdvReac Intermediate angina, Verified 07/15/22 07:44 muscle pain left thigh, left hip pain, simethicone AdvReac Diarrhea Verified 07/15/22 07:44 Contrast Media Allergy Severe Other Uncoded 07/15/22 07:44 CALCIUMCHANNEL Allergy Unknown Unknown Uncoded 07/15/22 07:44 Review of Systems Review of Systems: CONSTITUTIONAL: Denies body aches, fever, chills EYES: Denies visual changes ENT: Denies rhinorrhea, congestion CARDIOVASCULAR: Denies chest pain, palpitations, or edema. RESPIRATORY: Denies cough or dyspnea. GASTROINTESTINAL: Denies abdominal pain, nausea, vomiting, or diarrhea. SKIN: Denies rash, itching, or wounds. MUSCULOSKELETAL: per HPI NEUROLOGIC: Denies headache, numbness, tingling, or weakness. PSYCH: Denies depression or anxiety. All systems reviewed & are unremarkable except as noted in HPI and below PMFSH Surgical History Surgical History History of lumpectomy History of spinal surgery Family History Family History Father Hypertension Carcinoma of colon Malignant neoplasm of prostate Mother Hypertension Grandparent Family history of cardiovascular disease Cerebrovascular accident Social History Social History Smoking status: Never smoker Second hand tobacco smoke exposure: No Alcohol intake: never Substance use: never Substance use type: does not use Gender identity (if verbalized by the patient): Female Spiritual care concerns: No Agree to
[2022-07-22 19:43] VITALS: BP 187/93; PULSE 47; RESP 18; TEMP 36.5; O2SAT 100
[2022-07-22 19:44] VITALS: BP 187/93; PULSE 47; RESP 18; TEMP 36.5; O2SAT 100
== END 2022-07-22 19:50 | disposition home or self-care (01) ==
PROVIDERS: Emergency Provider Nurse Practitioner Family; PCP Family Medicine
DX: M79.661 Pain in right lower leg (principal)
CPT/HCPCS: 73590; 99213; G0463

== ENCOUNTER 2022-08-05 07:22 | Outpatient (CLI) | payer MEDICARE, OTHER, SELFPAY ==
--- NOTE | ~2022-08-05 | MM_ITS ---
EXAMINATION: MM screening latesha BI w miguel HISTORY: Screening mammogram TECHNIQUE: Craniocaudal and mediolateral oblique 3-D tomosynthesis images were obtained and synthetic 2-D images were generated. CAD analysis was submitted and interpreted. COMPARISON: 07/28/2021, 04/30/2020, 12/06/2017, 11/08/2017 BREAST PARENCHYMAL COMPOSITION: There are scattered areas of fibroglandular density. FINDINGS: Scattered benign-appearing calcifications are present. No suspicious mass, calcification, o r architectural distortion are identified in either breast to suggest malignancy. There has been no s uspicious interval change. IMPRESSION: 1. No mammographic evidence of malignancy. 2. Recommend routine screening mammography in one year. BI-RADS Category 2: Benign finding(s). Reviewed, dictated and finalized at location A. ICAL PHARMACY COORDINATOR
== END 2022-08-05 07:23 | disposition home or self-care (01) ==
LOC: ANHIMG 07:23
PROVIDERS: PCP Family Medicine; Visit Provider Family Medicine
DX: Z12.31 Encounter for screening mammogram for malignant neoplasm of breast (principal)
CPT/HCPCS: 77063; 77067

== ENCOUNTER → 2022-10-28 13:18 | Outpatient (CLI) | payer MEDICARE, OTHER, SELFPAY ==
--- NOTE | ~2022-10-28 | MR_ITS ---
EXAMINATION: MR brain/brain stem wo/w con DATE: 10/28/2022 14:20 INDICATION: Lesion of brain. Right-sided headache. TECHNIQUE: Magnetic resonance imaging (MRI) of the brain and brainstem was performed without and with 13 mL MultiHance intravenous contrast. COMPARISON: Brain MRI 06/02/2021 FINDINGS: There is no acute ischemic infarct or intracranial hemorrhage. Overlying the right frontal lobe, there is a 2.8 x 3.1 x 1.1 cm enhancing extra-axial mass with dural tails, consistent with a me ningioma. At the right sphenoid wing, there is a 1.8 x 1.2 x 1.2 cm enhancing extra-axial mass, consi stent with a meningioma. There are scattered areas of nonspecific increased T2-weighted signal intens ity in the cerebral white matter and gregory and left thalamus. The ventricles are normal in size. The o rbits are normal. The paranasal sinuses are clear. The mastoid air cells are normal. IMPRESSION: 1. Stable 3.1 cm meningioma overlying the right frontal lobe. 2. Stable 18 mm right sphenoid wing meningioma. 3. Moderate nonspecific cerebral white matter disease and disease of the gregory and left thalamus, wors ened from 06/02/2021, which likely represents chronic small vessel ischemic disease. Reviewed, dictated and finalized at location A. IMPRESSION: 1. Stable 3.1 cm meningioma overlying the right frontal lobe. 2. Stable 18 mm right sphenoid wing meningioma. 3. Moderate nonspecific cerebral white matter disease and disease of the gregory a nd left thalamus, worsened from 06/02/2021, which likely represents chronic smal l vessel ischemic disease.
== END ==
PROVIDERS: PCP Family Medicine
DX: G93.9 Disorder of brain, unspecified (principal); R93.0 Abnormal findings on diagnostic imaging of skull and head, not elsewhere classified
CPT/HCPCS: 70553; A9577

== ENCOUNTER 2023-02-27 14:33 | Emergency (ER) | payer MEDICARE, OTHER, SELFPAY ==
--- NOTE | ~2023-02-27 | CT_ITS ---
EXAMINATION: CT brain wo con DATE: 02/27/2023 15:41 INDICATION: Headache. TECHNIQUE: Computed tomography (CT) of the head was performed without intravenous contrast. The mA wa s adjusted according to patient size. Iterative reconstruction technique was employed. The dose-lengt h product was 529.67 mGy-cm. COMPARISON: Head CT 01/07/13, brain MRI 10/28/2022 FINDINGS: There is a 2.9 x 1.1 cm extra-axial mass overlying the right frontal lobe that is isodense to ojeda matter, consistent with a meningioma. There is a 1.7 cm calcified extra-axial mass at the rig ht sphenoid wing, consistent with a meningioma. There are scattered areas of low attenuation in the c erebral white matter. There is no intracranial hemorrhage or acute infarction. The ventricles are nor mal in size. The orbits are normal. The paranasal sinuses are clear. The mastoid air cells are normal . IMPRESSION: 1. 2.9 cm meningioma overlying the right frontal lobe, stable from 10/28/22. 2. 1.7 cm right sphenoid wing meningioma, stable from 10/28/22. 3. Stable moderate nonspecific cerebral white matter disease, which likely represents chronic small v essel ischemic disease. Reviewed, dictated and finalized at location A. IMPRESSION: 1. 2.9 cm meningioma overlying the right frontal lobe, stable from 10/28/22. 2. 1.7 cm right sphenoid wing meningioma, stable from 10/28/22. 3. Stable moderate nonspecific cerebral white matter disease, which likely repr esents chronic small vessel ischemic disease.
[2023-02-27 15:21] VITALS: BP 196/95; PULSE 50; RESP 16; TEMP 36.9; O2SAT 100
[2023-02-27 17:29] VITALS: RESP 18; O2SAT 99
--- NOTE | 2023-02-27 17:37 | ED.HA ---
HPI - Headache General Chief Complaint: Headache Stated Complaint: right sided MAHAJAN Time Seen by Provider: 02/27/23 17:21 History of Present Illness HPI Narrative: Pt presents with onset of posterior MAHAJAN 7 days ago. Pt says it started suddenly in the back of her head. Pt says it has been persistent and waxes and wanes in severity. Pt denies neck pain. Pt denies any neuro symptoms. Pt admits to her BP being elevated when she checks it in the ER but she checks it regularly at home and it is SBP in 120's. Pt due for dose of carvedilol. Related Data Home Medications Medication Instructions Recorded Confirmed carvedilol 12.5 mg tablet (Coreg) 12.5 mg PO TID 09/02/19 01/23/23 calcium carbonate 260 mg calcium 260 mg PO BID 09/16/21 01/23/23 (650 mg) chewable tablet (Mike-Mint) cholecalciferol (vitamin D3) 25 1,000 unit PO DAILY 10/28/21 01/23/23 mcg (1,000 unit) tablet (Vitamin D3) meloxicam 15 mg tablet 15 mg PO DAILY PRN Pain 10/28/21 01/23/23 acetaminophen 500 mg tablet 500 mg PO Q6H PRN Pain 11/05/21 01/23/23 Allergies Allergy/AdvReac Type Severity Reaction Status Date / Time benazepril Allergy Severe Other Verified 02/27/23 17:26 erythromycin base Allergy Severe Abdominal Verified 02/27/23 17:26 Pain influenza virus vaccine, Allergy Severe Other Verified 02/27/23 17:26 specific nitrofurantoin Allergy Severe Chest Pain Verified 02/27/23 17:26 ondansetron Allergy Severe violent Verified 02/27/23 17:26 wretching Penicillins Allergy Severe Hives / Verified 02/27/23 17:26 Red Face pregabalin Allergy Severe inability Verified 02/27/23 17:26 to urinate after two doses azithromycin Allergy Intermediate Hives Verified 02/27/23 17:26 cefadroxil Allergy Intermediate Rash Verified 02/27/23 17:26 GREG Inhibitors Allergy Unknown Unknown Verified 02/27/23 17:26 amlodipine Allergy Unknown Unknown Verified 02/27/23 17:26 Cephalosporins Allergy Unknown Unknown Verified 02/27/23 17:26 poison justo extract Allergy Blister Verified 02/27/23 17:26 potassium AdvReac Severe Diarrhea Verified 02/27/23 17:26 rofecoxib AdvReac Severe severe Verified 02/27/23 17:26 abdominal pain omeprazole AdvReac Intermediate angina, Verified 02/27/23 17:26 muscle pain left thigh, left hip pain, losartan AdvReac Unknown Other Verified 02/27/23 17:26 simethicone AdvReac Diarrhea Verified 02/27/23 17:26 Contrast Media Allergy Severe Other Uncoded 02/27/23 17:26 CALCIUMCHANNEL Allergy Unknown Unknown Uncoded 02/27/23 17:26 Review of Systems Review of Systems: All systems reviewed & are unremarkable except as noted in HPI and below PMFSH Past Medical History Medical History Chest pain due to psychological stress Contracture of palmar fascia (Dupuytren's) Essential (primary) hypertension Flu vaccine need She takes the epidermal flu shot 0.1 cc GERD (gastroesophageal reflux disease) Hyperlipidemia Mastodynia of left breast Type 2 diabetes mellitus without complications Vaccine reaction passed out with full dose flu shot Surgical History Surgical History History of lumpectomy History of spinal surgery Family History Family History Father Hypertension Carcinoma of colon Malignant neoplasm of prostate Mother Hypertension Grandparent Family history of cardiovascular disease Cerebrovascular accident Social History Social History Smoking status: Never smoker Second hand tobacco smoke exposure: No Alcohol intake: never Substance use: never Substance use type: does not use Lack of Transportation: No Lack of Food: Never True Current Housing: I Have Housing Concerned About Future Housing: No Difficulty Paying Gas/Electric Bills: No
[2023-02-27 17:45] VITALS: BP 189/96; PULSE 50; RESP 18; O2SAT 99
[2023-02-27 18:16] VITALS: PULSE 50
[2023-02-27] MEDS: diazePAM (*CRX) 5 MG TABLET 2.5 MG PO (18:16)
[2023-02-27] MEDS: carvediloL 12.5 MG TABLET PO (18:16)
[2023-02-27 18:18] VITALS: BP 196/78; PULSE 55; RESP 18; O2SAT 100
[2023-02-27 18:47] VITALS: BP 178/86; PULSE 55; RESP 18; O2SAT 97
== END 2023-02-27 18:48 | disposition home or self-care (01) ==
LOC: ANHED 18:31
PROVIDERS: Emergency Provider Emergency Medicine; PCP Family Medicine
DX: R51.9 Headache, unspecified (principal); I10 Essential (primary) hypertension; E78.5 Hyperlipidemia, unspecified; E11.9 Type 2 diabetes mellitus without complications; M72.0 Palmar fascial fibromatosis [Dupuytren]; K21.9 Gastro-esophageal reflux disease without esophagitis
CPT/HCPCS: 70450; 99284; A9270

== ENCOUNTER 2023-03-01 14:44 | Emergency (ER) | payer MEDICARE, OTHER, SELFPAY ==
--- NOTE | 2023-03-01 14:45 | ED.EAR ---
HPI - Ear Problem General Chief complaint: Ear Stated complaint: Rt Ear Irritation Time Seen by Provider: 03/01/23 14:45 Source: patient Mode of arrival: ambulatory Limitations: no limitations History of Present Illness HPI Narrative: Douglas lambert is a 72-year-old female patient presenting to the clinic today with complaints of x2 weeks of right ear pain. Went to the ER for headache and high blood pressure on the and was treated with Valium and carvedilol. States her ear was hurting at that time however no one in the ER looked in her ears. She is concerned that she may have an ear infection. Headache has improved but she still has a dull right-sided headache. Related Data Home Medications Medication Instructions Recorded Confirmed carvedilol 12.5 mg tablet (Coreg) 12.5 mg PO TID 09/02/19 03/01/23 calcium carbonate 260 mg calcium 260 mg PO BID 09/16/21 03/01/23 (650 mg) chewable tablet (Mike-Mint) cholecalciferol (vitamin D3) 25 1,000 unit PO DAILY 10/28/21 03/01/23 mcg (1,000 unit) tablet (Vitamin D3) meloxicam 15 mg tablet 15 mg PO DAILY PRN Pain 10/28/21 03/01/23 acetaminophen 500 mg tablet 500 mg PO Q6H PRN Pain 11/05/21 03/01/23 Allergies Allergy/AdvReac Type Severity Reaction Status Date / Time benazepril Allergy Severe Other Verified 03/01/23 15:07 erythromycin base Allergy Severe Abdominal Verified 03/01/23 15:07 Pain influenza virus vaccine, Allergy Severe Other Verified 03/01/23 15:07 specific nitrofurantoin Allergy Severe Chest Pain Verified 03/01/23 15:07 ondansetron Allergy Severe violent Verified 03/01/23 15:07 wretching Penicillins Allergy Severe Hives / Verified 03/01/23 15:07 Red Face pregabalin Allergy Severe inability Verified 03/01/23 15:07 to urinate after two doses azithromycin Allergy Intermediate Hives Verified 03/01/23 15:07 cefadroxil Allergy Intermediate Rash Verified 03/01/23 15:07 GREG Inhibitors Allergy Unknown Unknown Verified 03/01/23 15:07 amlodipine Allergy Unknown Unknown Verified 03/01/23 15:07 Cephalosporins Allergy Unknown Unknown Verified 03/01/23 15:07 poison justo extract Allergy Blister Verified 03/01/23 15:07 potassium AdvReac Severe Diarrhea Verified 03/01/23 15:07 rofecoxib AdvReac Severe severe Verified 03/01/23 15:07 abdominal pain omeprazole AdvReac Intermediate angina, Verified 03/01/23 15:07 muscle pain left thigh, left hip pain, losartan AdvReac Unknown Other Verified 03/01/23 15:07 simethicone AdvReac Diarrhea Verified 03/01/23 15:07 Contrast Media Allergy Severe Other Uncoded 03/01/23 15:07 CALCIUMCHANNEL Allergy Unknown Unknown Uncoded 03/01/23 15:07 Review of Systems Review of Systems: Pertinent positives per HPI. Patient denies any fever, chills, rash,visual changes, dizziness, cough, runny nose, sore throat, shortness of breath, chest pain, palpitations, nausea, vomiting, diarrhea, constipation, abdominal pain, or any urinary issues. [facility] Past Medical History Medical History Chest pain due to psychological stress Contracture of palmar fascia (Dupuytren's) Essential (primary) hypertension Flu vaccine need She takes the epidermal flu shot 0.1 cc GERD (gastroesophageal reflux disease) Hyperlipidemia Mastodynia of left breast Type 2 diabetes mellitus without complications Vaccine reaction passed out with full dose flu shot Surgical History Surgical History History of lumpectomy History of spinal surgery Family History Family History Father Hypertension Carcinoma of colon Malignant neoplasm of prostate Mother Hypertension Grandparent Family history of cardiovascular disease Cerebrovascular accident Social History Social History (Reviewed 03/01/23 @ 15:10 by Fernie Carrion
[2023-03-01 14:58] VITALS: BP 171/93; PULSE 50; RESP 18; TEMP 37.1; O2SAT 100
== END 2023-03-01 15:07 | disposition home or self-care (01) ==
PROVIDERS: Emergency Provider Nurse Practitioner Family; PCP Family Medicine
DX: H65.01 Acute serous otitis media, right ear (principal); I10 Essential (primary) hypertension; K21.9 Gastro-esophageal reflux disease without esophagitis; E78.5 Hyperlipidemia, unspecified; E11.9 Type 2 diabetes mellitus without complications
CPT/HCPCS: 99211; G0463

== ENCOUNTER 2024-02-17 16:28 | Emergency (ER) | payer MEDICARE, OTHER, SELFPAY ==
[2024-02-17] VITALS (9 sets, daily range): BP systolic 163–185; BP diastolic 93–104; PULSE 47–85; RESP 12–16; TEMP 36.4; O2SAT 97–100
[2024-02-17 19:40] LABS: Basophils Absolute Auto 0.1 K/mm3 (0.0-0.1); Basophils Percent Auto 0.8 % (0.2-1.2); Eosinophils Percent Auto 0.4 % (0-4.4); Hematocrit 43.3 % (37.0-47.0); Hemoglobin 14.2 g/dL (12.0-15.0); Immature Granulocyte Absolute 0.02 K/mm3 (0.00-0.031); Immature Granulocyte Percent A 0.3 % (0-0.5); Lymphocytes Absolute Auto 1.32 K/mm3 (0.9-3.2); Mean Corpuscular HGB Conc 32.8 g/dl (32-36); Mean Corpuscular Hemoglobin 31.1 pg (26-34); Mean Corpuscular Volume 94.7 fl (80-100); Mean Platelet Volume 12.4 fl (7.4-10.4); Monocytes Absolute Auto 0.2 K/mm3 (0.1-0.6); Neutrophils Absolute Auto 6.1 K/mm3 (1.3-6.7); Neutrophils Percent Auto 78.5 % (45.5-73.1); Platelet Count Result 170 k/mm3 (150-375); Red Blood Count 4.57 M/mm3 (4.2-5.4); White Blood Count 7.8 K/mm3 (4.5-10.0)
[2024-02-17 19:53] LABS: Alanine Aminotransferase 13 U/L (6-35); Albumin Level 4.7 g/dL (3.5-5.1); Alkaline Phosphatase 101 U/L (38-126); Anion Gap 12 mmol/L (4-12); Aspartate Amino Transferase 21 U/L (14-36); Bilirubin,Total 0.9 mg/dL (0.2-1.3); Blood Urea Nitrogen 17 mg/dL (7-17); Calcium 9.7 mg/dL (8.4-10.2); Carbon Dioxide 26 mmol/L (22-30); Chloride 101 mmol/L (98-107); Estimated CRCL calculation 50 ml/min; Estimated Glomerular Filt Rate > 60; Glucose 122 mg/dL (65-110); Magnesium 2.1 mg/dL (1.6-2.3); Sodium 139 mmol/L (137-145)
--- NOTE | 2024-02-17 20:46 | ED.GENADULT ---
HPI - General Adult General Chief complaint: Unspecified Stated complaint: nausea, unable to focus eyes Time Seen by Provider: 02/17/24 19:16 History of Present Illness HPI narrative: This is a 73-year-old female presenting with eye complaints. Patient says she has not slept for 40 hours. She was trying to go to sleep last night but her eyes kept looking to the left. This was associated with some nausea. She says this has happened to her in the past and was associated with hypokalemia. She is requesting recheck her laboratory studies. All of her symptoms have currently resolved. She has no neurologic deficits, double vision dysarthria dysphagia or loss of coordination. No nausea at this time. Related Data Home Medications Medication Instructions Recorded Confirmed carvedilol 12.5 mg tablet (Coreg) 12.5 mg PO TID 09/02/19 01/08/24 calcium carbonate (Mike-Mint) 260 mg PO BID 09/16/21 01/08/24 cholecalciferol (vitamin D3) 25 1,000 unit PO DAILY 10/28/21 01/08/24 mcg (1,000 unit) tablet (Vitamin D3) meloxicam 15 mg tablet 15 mg PO DAILY PRN Pain 10/28/21 01/08/24 acetaminophen 500 mg tablet 500 mg PO Q6H PRN Pain 11/05/21 01/08/24 doxazosin 1 mg tablet (Cardura) 1 mg PO QHS 09/27/23 01/08/24 potassium chloride 10 mEq 10 meq PO .4 X weekly 01/08/24 01/08/24 capsule,extended release Allergies Allergy/AdvReac Type Severity Reaction Status Date / Time benazepril Allergy Severe Other Verified 01/08/24 14:59 erythromycin base Allergy Severe Abdominal Verified 01/08/24 14:59 Pain influenza virus vaccine, Allergy Severe Other Verified 01/08/24 14:59 specific nitrofurantoin Allergy Severe Chest Pain Verified 01/08/24 14:59 ondansetron Allergy Severe violent Verified 01/08/24 14:59 wretching Penicillins Allergy Severe Hives / Verified 01/08/24 14:59 Red Face pregabalin Allergy Severe inability Verified 01/08/24 14:59 to urinate after two doses azithromycin Allergy Intermediate Hives Verified 01/08/24 14:59 cefadroxil Allergy Intermediate Rash Verified 01/08/24 14:59 GREG Inhibitors Allergy Unknown Unknown Verified 01/08/24 14:59 amlodipine Allergy Unknown Unknown Verified 01/08/24 14:59 Cephalosporins Allergy Unknown Unknown Verified 01/08/24 14:59 poison justo extract Allergy Blister Verified 01/08/24 14:59 potassium AdvReac Severe Diarrhea Verified 01/08/24 14:59 rofecoxib AdvReac Severe severe Verified 01/08/24 14:59 abdominal pain omeprazole AdvReac Intermediate angina, Verified 01/08/24 14:59 muscle pain left thigh, left hip pain, losartan AdvReac Unknown Other Verified 01/08/24 14:59 simethicone AdvReac Diarrhea Verified 01/08/24 14:59 Contrast Media Allergy Severe Other Uncoded 01/08/24 14:59 CALCIUMCHANNEL Allergy Unknown Unknown Uncoded 01/08/24 14:59 PMFSH Past Medical History Medical History Chest pain due to psychological stress Contracture of palmar fascia (Dupuytren's) Essential (primary) hypertension Flu vaccine need She takes the epidermal flu shot 0.1 cc GERD (gastroesophageal reflux disease) Hyperlipidemia Mastodynia of left breast Type 2 diabetes mellitus without complications Vaccine reaction passed out with full dose flu shot Surgical History Surgical History History of lumpectomy History of spinal surgery Family History Family History Father Hypertension Carcinoma of colon Malignant neoplasm of prostate Mother Hypertension Grandparent Family history of cardiovascular disease Cerebrovascular accident Social History Social History (Updated 01/08/24 @ 15:00 by Marilyn Hall MA) Smoking status: Never smoker Second hand tobacco smoke exposure: No Alcohol intake: never Substance use: never Substance use type: does not use Do You Feel S
== END 2024-02-17 21:13 | disposition home or self-care (01) ==
PROVIDERS: Emergency Provider Emergency Medicine; PCP Family Medicine
DX: R42 Dizziness and giddiness (principal); I10 Essential (primary) hypertension; E78.5 Hyperlipidemia, unspecified; E11.9 Type 2 diabetes mellitus without complications; K21.9 Gastro-esophageal reflux disease without esophagitis; M72.0 Palmar fascial fibromatosis [Dupuytren]; Z79.899 Other long term (current) drug therapy
CPT/HCPCS: 36415; 80053; 83735; 85025; 99283

== ENCOUNTER 2024-07-15 13:37 | Emergency (ER) | payer MEDICARE, OTHER, SELFPAY ==
--- NOTE | ~2024-07-15 | XR_ITS ---
EXAMINATION: XR toe 1st LT min 2V DATE: 07/15/2024 14:53 INDICATION: Left great toe injury. TECHNIQUE: 3 views of left great toe were obtained. COMPARISON: None. FINDINGS: Alignment is normal. No fracture. There is mild osteoarthritis of first metatarsophalangeal joint. IMPRESSION: 1. Mild osteoarthritis of first metatarsophalangeal joint. Reviewed, dictated and finalized at location A. R SYSTEM OPERATOR
[2024-07-15 14:09] VITALS: BP 183/88; PULSE 48; RESP 20; TEMP 36.7; O2SAT 98
--- NOTE | 2024-07-15 14:33 | ED.GENADULT ---
HPI - General Adult General Chief complaint: Skin/Abscess/Foreign Body Stated complaint: redness on foot Time Seen by Provider: 07/15/24 14:34 Source: patient, RN notes reviewed and old records reviewed Mode of arrival: ambulatory Limitations: no limitations History of Present Illness HPI narrative: 73-year-old female [facility] a pink line across the left great toe Onset (ago): hour(s) Treatments prior to arrival: none Related Data Home Medications ?Medication ?Instructions ?Recorded ?Confirmed ?Last Taken ?Type carvedilol 12.5 mg tablet (Coreg) 12.5 mg PO TID 09/02/19 07/09/24 11/04/21 History calcium carbonate (Mike-Mint) 260 mg PO BID 09/16/21 07/09/24 11/04/21 History cholecalciferol (vitamin D3) 25 1,000 unit PO DAILY 10/28/21 07/09/24 11/04/21 History mcg (1,000 unit) tablet (Vitamin D3) meloxicam 15 mg tablet 15 mg PO DAILY PRN Pain 10/28/21 07/09/24 11/04/21 History acetaminophen 500 mg tablet 500 mg PO Q6H PRN Pain 11/05/21 07/09/24 Unknown History doxazosin 1 mg tablet (Cardura) 1 mg PO QHS 09/27/23 07/09/24 Unknown History Allergies Allergy/AdvReac Type Severity Reaction Status Date / Time benazepril Allergy Severe Other Verified 07/15/24 14:33 erythromycin base Allergy Severe Abdominal Verified 07/15/24 14:33 Pain influenza virus vaccine, Allergy Severe Other Verified 07/15/24 14:33 specific nitrofurantoin Allergy Severe Chest Pain Verified 07/15/24 14:33 ondansetron Allergy Severe violent Verified 07/15/24 14:33 wretching Penicillins Allergy Severe Hives / Verified 07/15/24 14:33 Red Face pregabalin Allergy Severe inability Verified 07/15/24 14:33 to urinate after two doses azithromycin Allergy Intermediate Hives Verified 07/15/24 14:33 cefadroxil Allergy Intermediate Rash Verified 07/15/24 14:33 GREG Inhibitors Allergy Unknown Unknown Verified 07/15/24 14:33 amlodipine Allergy Unknown Unknown Verified 07/15/24 14:33 Cephalosporins Allergy Unknown Unknown Verified 07/15/24 14:33 poison justo extract Allergy Blister Verified 07/15/24 14:33 potassium AdvReac Severe Diarrhea Verified 07/15/24 14:33 rofecoxib AdvReac Severe severe Verified 07/15/24 14:33 abdominal pain omeprazole AdvReac Intermediate angina, Verified 07/15/24 14:33 muscle pain left thigh, left hip pain, losartan AdvReac Unknown Other Verified 07/15/24 14:33 simethicone AdvReac Diarrhea Verified 07/15/24 14:33 Contrast Media Allergy Severe Other Uncoded 07/09/24 16:05 CALCIUMCHANNEL Allergy Unknown Unknown Uncoded 07/09/24 16:05 Review of Systems Review of Systems: All systems reviewed & are unremarkable except as noted in HPI and below Constitutional: Constitutional: Reports no additional constitutional complaints ENT: Reports system reviewed and no additional complaints, except as documented Cardiovascular: Cardiovascular: Reports no additional cardiovascular complaints, Denies chest pain and Denies dyspnea Respiratory: Respiratory: Reports no additional respiratory complaints, Denies chest congestion, Denies cough and Denies dyspnea Gastrointestinal: Gastrointestinal: Reports no additional gastrointestinal complaints, Denies abdominal pain, Denies nausea and Denies vomiting Musculoskeletal: Musculoskeletal: Reports no additional musculoskeletal complaints Integumentary/Breasts: Skin/Breast: Reports as per HPI PMF Past Medical History Medical History Hyperlipidemia GERD (gastroesophageal reflux disease) Vaccine reaction passed out with full dose flu shot Flu vaccine need She takes the epidermal flu shot 0.1 cc Chest pain due to psychological stress Mastodynia of left breast Contracture of palmar fascia (Dupuytren's) Type 2 diabetes mellitus without complications Essential (primary) hypertension Surgical History Surgical History History of lumpectomy History of spinal surgery Family History Family History Father Hypertension Carcinoma of colon Malignant neoplasm of prostate Mother Hypertension Grandparent Family history of cardiovascular disease Cerebrovascular accident Social History Social History Smoking status: Never smoker Second hand tobacco smoke exposure: No Alcohol intake: never Substance use: never Substance use type: does not use Do You Feel Safe in your Home?: Yes Lack of Transportation: No Lack of Food: Never True Current Housing: I Have Housing Concerned About Future Housing: No Difficulty Paying Gas/Electric Bills: No Difficulty Paying for Meds: No Currently Unemployed: No Education: Associate Degree Difficulty w/ Childcare or Family Care: No Living arrangements: with family Occupation/Education: retired Gender identity (if verbalized by the patient): Female Spiritual care concerns: No Agree to blood products: Yes Comments At the time of my signature, I reviewed and agree with the nursing past medical, surgical, social, and family history. There is no relevant family history pertinent to the patient complaint. Exam Const: General: cooperative, healthy appearing, comfortable, no acute distress, well developed, alert and well nourished Nutritional Appearance: well nourished Orientation/consciousness: patient oriented x3 Limitations: no limitations HENMT: Head: normal to inspection Eyes: General: appearance normal, both eyes and all related structures Neck: Neck: normal visual inspection, full ROM, no lymphadenopathy and no meningeal signs Chest: Chest palpation & inspection: normal inspection of the chest Resp: Effort & Inspection: normal respiratory effort and able to speak in complete sentences Cardio: Rate: regular rate Skin: General skin exam: normal color and no rashes or lesions noted Rashes: no rashes Wounds: no wounds Neuro: General: patient oriented x3, gait normal, tone normal, moves all extremities and no meningeal signs Cognition (Neuro): normal cognition Speech: normal speech Gait exam (Neuro): Normal gait present Extrem: General: normal to inspection, full ROM, capillary refill normal and normal gait Left lower extremity: foot Details: tenderness Location: of the great toe Location: at the IP joint, toes with normal ROM and no edema; no unusual warmth Ankle/foot/toe images:  1. pink line without swelling, no increased warmth. Tenderness to the joint. No fluctuance. Psych: Appearance: grossly normal and well kempt Mental Status: mental status grossly normal Speech and movement: Normal speech and movement present and Clear speech present Affect: normal affect Attitude: cooperative Course Course Level of Care: Express Care Visit Vital Signs Vital signs: Vital Signs Temperature 98.1 F 07/15/24 14:09 Pulse Rate 48 L 07/15/24 14:09 Respiratory Rate 20 07/15/24 14:09 Blood Pressure 183/88 H 07/15/24 14:09 Pulse Oximetry 98 07/15/24 14:09 Oxygen Delivery Room Air 07/15/24 14:09 Temperature 98.1 F 07/15/24 14:09 Pulse Rate 48 L 07/15/24 14:09 Respiratory Rate 20 07/15/24 14:09 Blood Pressure 183/88 H 07/15/24 14:09 Pulse Oximetry 98 07/15/24 14:09 Oxygen Delivery Room Air 07/15/24 14:09 Reviewed Medical Decision Making MDM Narrative Medical decision making narrative: Patient sitting comfortably in exam room. Nontoxic, vitals stable. Patient in no acute distress Patient presents for a red line across the left great toe X-ray shows arthritis Patient appropriate for outpatient treatment and follow-up Discharge instructions reviewed with patient, as well as provided in writing per nursing staff. The instructions also include specific and strict return/GO TO THE ER as well as f/u information. All questions have been answered, and the patient deny any further questions with discharge and discharge plan. Some parts of this dictation were generated by voice recognition software and may contain typographical and/or grammatical inaccuracies. Differential Diagnosis Differential Diagnosis: Arthritis, irritation, cellulitis Medical Records Medical records reviewed: Yes I reviewed the external patient's medical records. Vital Signs Vital Signs: Vital Signs Temperature 98.1 F 07/15/24 14:09 Pulse Rate 48 L 07/15/24 14:09 Respiratory Rate 20 07/15/24 14:09 Blood Pressure 183/88 H 07/15/24 14:09 Pulse Oximetry 98 07/15/24 14:09 Oxygen Delivery Room Air 07/15/24 14:09 Temperature 98.1 F 07/15/24 14:09 Pulse Rate 48 L 07/15/24 14:09 Respiratory Rate 20 07/15/24 14:09 Blood Pressure 183/88 H 07/15/24 14:09 Pulse Oximetry 98 07/15/24 14:09 Oxygen Delivery Room Air 07/15/24 14:09 Reviewed Lab Data Lab results reviewed: Yes I reviewed the patient's lab results. Labs: Reviewed Imaging Data Radiologist's impression: EXAMINATION: XR toe 1st LT min 2V DATE: 07/15/2024 14:53 INDICATION: Left great toe injury. TECHNIQUE: 3 views of left great toe were obtained. COMPARISON: None. FINDINGS: Alignment is normal. No fracture. There is mild osteoarthritis of first metatarsophalangeal joint. IMPRESSION: 1. Mild osteoarthritis of first metatarsophalangeal joint. Critical Care Time Critical Care Time Critical Care Time: No Discharge Plan Discharge Clinical Impression: Discoloration of skin, Arthritis Patient Disposition: Home, Self-Care Condition: Stable Instructions: Antibiotic Form, Arthritis (ED) Additional Instructions: If something abnormal shows up on your x-ray other than arthritis we will call you later this evening. Take Tylenol as needed for discomfort. To the discoloration you can apply bacitracin Today your blood pressure was 183/88. Please follow-up with your primary care provider within the next 1-2 weeks to have this rechecked. Untreated or undertreated blood pressure can lead to more serious health For new or worsening symptoms go to the ER Patient Language: Hong Konger Prescriptions: No Action carvedilol [Coreg] 12.5 mg tablet 12.5 mg PO TID Rx Instructions: must administer with a meal/food calcium carbonate [Mike-Mint] 260 mg calcium (650 mg) tablet,chewable 260 mg PO BID doxazosin [Cardura] 1 mg tablet 1 mg PO QHS cholecalciferol (vitamin D3) [Vitamin D3] 25 mcg (1,000 unit) Tablet 1,000 unit PO DAILY meloxicam 15 mg tablet 15 mg PO DAILY PRN (Reason: Pain) acetaminophen [Tylenol Ex Str Arthritis Pain] 500 mg Tablet 500 mg PO Q6H PRN (Reason: Pain) diazepam 5 mg tablet 2.5 mg PO TID PRN (Reason: Anxiety) Qty: 30 0RF potassium chloride 10 mEq capsule, extended release 10 meq PO .4 X weekly Qty: 48 3RF Rx Instructions: Take with food. amiloride 5 mg tablet 5 mg PO DAILY Qty: 90 4RF pravastatin 10 mg tablet 10 mg PO DAILY Qty: 90 3RF Follow-up/Referrals: Vivienne Ac MD [Primary Care Provider] - 1 Week ([facility] follow up blood pressure check 183/88) Time of Disposition: 15:42
== END 2024-07-15 15:50 | disposition home or self-care (01) ==
PROVIDERS: Emergency Provider Nurse Practitioner; PCP Family Medicine
DX: L81.9 Disorder of pigmentation, unspecified (principal); M19.072 Primary osteoarthritis, left ankle and foot; E78.5 Hyperlipidemia, unspecified; E11.9 Type 2 diabetes mellitus without complications; I10 Essential (primary) hypertension; K21.9 Gastro-esophageal reflux disease without esophagitis
CPT/HCPCS: 73660; 99213; G0463

== ENCOUNTER 2025-03-03 15:41 | Outpatient (CLI) | payer MEDICARE, OTHER, SELFPAY ==
--- NOTE | ~2025-03-03 | MR_ITS ---
MRI of the brain Clinical History: Meningioma Technique: Axial and sagittal T1-weighted images were acquired. These were followed by axial T2-weigh olayinka, diffusion weighted, gradient, and FLAIR images. Following intravenous administration of 15 cc Mu ltiHance gadolinium, T1-weighted fat-sat imaging was performed in the axial, coronal, and sagittal pl anes. COMPARISON: 10/28/2022 Findings: There is no acute infarct or intracranial hemorrhage. Moderate to advanced chronic microvas cular ischemic change throughout the periventricular white matter is similar to prior exam. 2.9 x 1.0 x 2.5 cm enhancing meningioma along the right frontal convexity is unchanged from prior exam. Stable additional right sphenoid wing meningioma measuring 1.2 cm in diameter. Ventricles and subarachnoid spaces are unremarkable. Orbits are unremarkable. Paranasal sinuses and m astoid air cells are clear. Major intracranial flow voids are intact. Sagittal midline structures are intact. IMPRESSION: Stable 2.9 x 1.0 x 2.5 cm meningioma at the right frontal convexity. Stable additional 1.2 cm right s phenoid wing meningioma. Moderate to advanced chronic microvascular ischemic change. Reviewed, dictated and finalized at location M. IMPRESSION: Stable 2.9 x 1.0 x 2.5 cm meningioma at the right frontal convexity. Stable add itional 1.2 cm right sphenoid wing meningioma. Moderate to advanced chronic microvascular ischemic change.
--- OUTSIDE RECORDS SUMMARY | 2025-03-03 15:44 | XMS_ITS | Clinical Summary ---
Author Organization [facility] Address [address] [address] Phone Care Team Providers Care Electrical Unit Rebuilder Name Role Phone Rubin Valdez MD Primary Care Provider [phone] Allergies Active Allergy Reactions Criticality Noted Date Comments Audi Inhibitors Unknown Adhesive Tape Unknown Amlodipine Besylate Unknown Cephalosporins Unknown Cefadroxil Unknown Erythromycin Unknown Erythromycin derivatives Amlodipine Besy-Benazepril Hcl Unknown Pregabalin Unknown Nitrofurantoin Monohyd Macro Unknown Nitrofurantoin Unknown Penicillins Unknown Potassium Diarrhea 07/10/2020 Pt states potassium tablet gave her diarrhea and pain for 3 months Omeprazole Unknown Rofecoxib Unknown Ondansetron Hcl Unknown Medications hydrochlorothiaz abdiel 25 MG Tablet Take by mouth daily. Active losartan (COZAAR) 50 MG Tablet Take 50 mg by mouth. 05/08/2020 Active pravastatin (PRAVACHOL) 10 MG Tablet Take 10 mg by mouth. 07/01/2020 Active carvedilol (COREG) 12.5 MG Tablet 04/20/2020 Active meloxicam (MOBIC) 15 MG Tablet Take 15 mg by mouth daily. Pt takes as needed. Active Acetaminophen (TYLENOL PO) Take by mouth. Active Loperamide HCl (Anti-Diarrheal) 2 MG Tablet Take 2 mg by mouth 4 times daily as needed. Pt takes as needed Active pantoprazole (PROTONIX) 40 MG Tablet Delayed ResponseIndicati ons:Gastroesopha geal reflux disease, unspecified whether esophagitis present TAKE 1 TABLET BY MOUTH DAILY 90 Tablet 2 11/04/2020 Active famotidine (PEPCID) 20 MG TabletIndication s:Gastroesophage al reflux disease, unspecified whether esophagitis present TAKE 1 TABLET BY MOUTH TWICE A DAY 120 Tablet 2 04/08/2021 Active Active Problems Problem Noted Date Diagnosed Date Diarrhea GERD (gastroesophageal reflux disease) Immunizations Immunization Administration Dates Next Due Influenza, Recombinant, Quadrivalent,injectable, Pf 06/08/2020 Influenza, Seasonal, Injectable, Undefined 04/22 Family History Medical History Relation Name Comments Alzheimer's Disease Father Colon Cancer Father Heart Attack Maternal Grandfather Parkinsonism Paternal Grandmother Relation Name Status Comments Father Maternal Grandfather Alive Paternal Grandmother Social History Tobacco Use Types Packs/Day Years Used Date Smoking Tobacco: Never Smokeless Tobacco: Never Tobacco Cessation:Counseling Given: No Alcohol Use Standard Drinks/Week Comments Not Currently 0 (1 standard drink = 0.6 oz pur e alcohol) AUDIT-C Answer Date Recorded Q1: How often do you have a drink containing alc ohol? Never 07/10/2020 Average Number of Drinks Not on file 020 Frequency of Binge Drinking Not on file 06/30 Sexually Active Control Partners Comments Yes Comments No Sex and Gender Information Value Date Recorded Sex Assigned at Not on file Legal Sex Female 10:59 PM CDT Gender Identity Not on file Sexual Orientation Not on file Last Filed Vital Signs Vital Sign Reading Time Taken Comments Blood Pressure 142/78 07/10/2020 1:50 PM LOGISTIC MANAGER Pulse 47 07/10/2020 1:50 PM LOGISTIC MANAGER Temperature 36.1 C (97 F) 07/10/2020 1:50 PM LOGISTIC MANAGER Respiratory Rate 20 07/10/2020 1:50 PM LOGISTIC MANAGER Oxygen Saturation 97% 07/10/2020 1:50 PM LOGISTIC MANAGER Inhaled Oxygen Concentration - - Weight 76.7 kg (169 lb) 07/10/2020 1:50 PM LOGISTIC MANAGER Height 157.5 cm (5' 2) 07/10/2020 1:50 PM LOGISTIC MANAGER Body Mass Index 30.91 07/10/2020 1:50 PM LOGISTIC MANAGER Plan of Treatment Health Maintenance Due Date Last Done Comments Hepatitis C Virus (HCV) Screening 1950 TdaP Immunization 1950 Cologuard 1997 Immunochemical Fecal Occult Blood 1997 Pneumococcal Immunization (5 0+ years) (1 of 1 - PCV) 2002 Zoster Immunization (1 of 2) 2002 SARS-COV-2 Immunization ( season) 2024 05/02/2021, 10/24/2020, 09/29/2020 Colonoscopy 05/01/2024 05/01/2014 Colorectal Cancer Screening 05/01/2024 Influenza Immunization (#1) 2025 11/0 03/2020, 04/22/2013 Respiratory Syncytial Virus (RSV) Immunization (Adult) (1 - 1-dose 75+ series) 2027 Hepatitis B Immunization Aged Out No longer eligible based on patient's age to complete this topic Human Papillomavirus (HPV) Immunization Aged Out No longer eligible b ased on patient's age to complete this topic Meningococcal Immunization (ACWY) Aged Out No longer eligible b ased on patient's age to complete this topic Rotavirus Immunization Aged Out No lo nger eligible based on patient's age to complete this topic Procedures Procedure Name Priority Date/Time Associated Diagnosis Comments COLONOSCOPY Routine 05/01/2014 from Last 3 Months or Most Recently Relevant to Health Maintenance Results * COLONOSCOPY (05/01/2014) Humphrey Jasper Hawthorne DO PROCEDURE/MINOR SURGICAL ORDERA BLES Final Result from Last 3 Months or Most Recently Relevant to Health Maintenance Insurance MEDICARE [facility] on file Care Teams Electrical Unit Rebuilder Relationship Specialty Start Date End Date Rubin Valdez MD [address] [place] [address] PCP - General Family Medicine 06/15/20
--- OUTSIDE RECORDS SUMMARY | 2025-03-03 15:44 | XMS_ITS | Encounter Summary ---
Author Organization [facility] Address [address] [place] [address] Care Team Providers Care Quenching Machine Operator Name Role Phone Ayo Marin MD Primary Care Provider [phone] Encounter Details Date Type Department Care Team (Latest Contact Info) Description 11/25/1998 Outpatient Historical HIS OBSERVATION BED Josse Randall Displacement of lumbar intervertebral disc without myelopathy (Primary Dx) Social History Tobacco Use Types Packs/Day Years Used Date Smoking Tobacco: Never Assessed Comments Unknown Sex and Gender Information Value Date Recorded Sex Assigned at Not on file Legal Sex Female 4:18 AM SEAMAN OFFICER Gender Identity Not on file Sexual Orientation Not on file documented as of this encounter Plan of Treatment Not on file documented as of this encounter Visit Diagnoses Diagnosis Displacement of lumbar intervertebral disc without myelopathy- Primary documented in this encounter Care Teams Quenching Machine Operator Relationship Specialty Start Date End Date Ayo Marin MD [address] [place] [address] PCP - General 06/16/05 documented as of this encounter
--- OUTSIDE RECORDS SUMMARY | 2025-03-03 15:44 | XMS_ITS | Encounter Summary ---
Author Organization [facility] Address [address] [place] [address] Phone Care Team Providers Care Clinical Data Abstractor Name Role Phone Rubin Valdez MD Primary Care Provider [phone] Reason for Visit * Reason Comments Medication Refill Encounter Details Date Type Department Care Team ([facility] st Contact Info) Description 10/07/2020 Refill [facility] - Gastroenterology [facility] [address] [place] [address] Nataly Lozada Danielle, PAC [address] [place] [address] Medication Refill Social History Tobacco Use Types Packs/Day Years Used Date Smoking Tobacco: Never Smokeless Tobacco: Never Alcohol Use Standard Drinks/Week Comments Not Currently [...] on file documented as of this encounter Miscellaneous Notes * Telephone Encounter - Sravanthi Bo CMA - 10/07/2020 2:18 PM DIAL EQUIPMENT ENGINEER Pharmacy requesting refill of: Requested Prescriptions Pending Prescriptions Disp Refills ??? famotidine (PEPCID) 20 MG Tablet [Pharmacy Med Name: Famotidine 20MG TABS] 120 Tablet Sig: TAKE 1 TABLET BY MOUTH TWICE A DAY Last fill: 07/30/2020 Patients last OV with GI: 07/10/2020 Next Office Visit with GI: None scheduled EQUIPMENT ENGINEER documented in this encounter Plan of Treatment Not on file documented as of this encounter Visit Diagnoses Diagnosis Gastroesophageal reflux disease, unspecified whether esophagitis present documented in this encounter Care Teams Clinical Data Abstractor Relationship Specialty Start Date End Date Rubin Valdez MD [address] [place] [address] PCP - General Family Medicine 06/15/20 documented as of this encounter
--- OUTSIDE RECORDS SUMMARY | 2025-03-03 15:44 | XMS_ITS | Clinical Summary ---
Author Organization [facility] Address [address] [address] Phone Care Team Providers Care Sewing Machine Operator Paper Bags Name Role Phone Unavailable Primary Care Provider Unavailabl e Medications hydroCHLOROthiaz abdiel (MICROZIDE) 12.5 MG capsule 01/14/2015 Act pawan nebivolol (BYSTOLIC) 5 MG tablet 1 daily 07/01/2015 Active etodolac (LODINE) 400 MG tablet prn 07/06/2015 Active losartan (COZAAR) 25 MG tablet 01/14/2015 Active diazePAM (VALIUM) 5 MG tablet 01/14/2015 Active metFORMIN XR (GLUCOPHATE-XR) 500 MG 24 hr tablet 01/14/2015 Active Active Problems Problem Noted Date Diagnosed Date Type 2 diabetes mellitus without complication Essential (primary) hypertension 01/14/2015 Calculus of kidney 01/14/2015 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 Family History Medical History Relation Comments Cerebrovascular accident Father Hypertensive disorder Father Hypertensive disorder Mother Kidney disease Neg Hx Kidney stone Neg Hx Relation Status Comments Father Mother Social History Tobacco Use Types Packs/Day Years Used Date Smoking Tobacco: Never Assessed Comments Unknown Sex and Gender Information Value Date Recorded Sex Assigned at Not on file Legal Sex Female 9:28 AM MST Gender Identity Not on file Sexual Orientation Not on file Last Filed Vital Signs Vital Sign Reading Time Taken Comments Blood Pressure 162/92 07/01/2015 12:01 AM PRINTING MECHANIST Pulse 60 07/01/2015 12:01 AM PRINTING MECHANIST Temperature 37.1 C (98.8 F) 07/01/2015 12:01 AM PRINTING MECHANIST Respiratory Rate - - Oxygen Saturation - - Inhaled Oxygen Concentration - - Weight 71.7 kg (158 lb) 07/01/2015 12:01 AM PRINTING MECHANIST Height 157.5 cm (5' 2) 07/01/2015 12:01 AM PRINTING MECHANIST Body Mass Index 28.9 07/01/2015 12:01 AM PRINTING MECHANIST Plan of Treatment Not on file
--- OUTSIDE RECORDS SUMMARY | 2025-03-03 15:44 | XMS_ITS | Encounter Summary ---
Author Organization [facility] Address 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 Gender Identity Not on file Sexual Orientation Not on file documented as of this encounter Plan of Treatment Not on file documented as of this encounter Procedures Procedure Name Priority Date/Time Associated Diagnosis Comments CBC WITH DIFFERENTIAL Routine 06/17/2005 1:15 PM COACH OPERATOR CBC WITH DIFFERENTIAL Routine 06/17/2005 1:15 PM COACH OPERATOR URINALYSIS W/REFLEX MICROSCOPIC Routine 06/17/2005 12:45 PM COACH OPERATOR documented in this encounter Results * CBC WITH DIFFERENTIAL (06/17/2005 1:15 PM COACH OPERATOR) NEUTROPHILS 64 45 - 70 % INTERFAC E SYSTEM LYMPHOCYTES 24 16 - 45 % INTERFAC E SYSTEM MONOCYTES 11 3 - 13 % INTERFACE SYSTEM EOSINOPHILS 1 0 - 7 % INTERFAC E SYSTEM BASOPHILS 0 0 - 2 % INTERFACE SYSTEM NEUTROPHIL ABSOLUTE 6.51 1.90 - 7.00 K/uL INTERFACE SYSTEM LYMPHOCYTE ABSOLUTE 2.47 0.70 - 4.50 K/uL INTERFACE SYSTEM MONOCYTE ABSOLUTE 1.08 0.10 - 1.30 K/uL INTERFACE SYSTEM EOSINOPHIL ABSOLUTE 0.08 0.00 - 0.70 K/uL INTERFACE SYSTEM BASOPHILS ABSOLUTE 0.03 0.00 - 0.20 K/uL INTERFACE SYSTEM 06/17/2005 1:15 PM COACH OPERATOR Josse Randall HEMATOLOGY ORDERABLES Final R esult Performing Organization Address [facility] de Phone Number INTERFACE SYSTEM Refer to clinic/hospital department * (ABNORMAL) CBC WITH DIFFERENTIAL (06/17/2005 1:15 PM COACH OPERATOR) WBC 10.2(H) 4.0 - 9.8 K/uL INTERFACE SYSTEM RBC 4.91(H) 3.90 - 4.90 M/uL INTERFACE SYSTEM HEMOGLOBIN 15.0(H) 11.8 - 14.8 g/dL INTERFACE SYSTEM HEMATOCRIT 44.9(H) 35.5 - 44.0 % INTERFACE SYSTEM MCV 91.4 82.0 - 99.0 fL INTERFACE SYSTEM MCH 30.5 27.2 - 32.6 pg INTERFACE SYSTEM MCHC 33.4 31.5 - 35.5 % INTERFACE SYSTEM RDW 12.7 11.5 - 14.5 % INTERFACE SYSTEM RDW-STDEV 42.5 37.1 - 48.7 fL INTERFACE SYSTEM PLATELETS 220 140 - 350 K/uL INTERFACE SYSTEM MPV 12.8(H) 9.3 - 12.4 fL INTERFACE SYSTEM 06/17/2005 1:15 PM COACH OPERATOR Woodydelphine Randall HEMATOLOGY ORDERABLES Final R esult Performing Organization Address [facility] de Phone Number INTERFACE SYSTEM Refer to clinic/hospital department * (ABNORMAL) URINALYSIS (06/17/2005 12:45 PM COACH OPERATOR) COLOR UA Yellow INTERFACE SYSTEM CLARITY UA Clear Clear INTERFACE SYSTEM SPECIFIC GRAVITY UA 1.030 1.001 - 1.035 INTERFACE SYSTEM PH UA 5.5 5.0 - 8.0 INTERFACE SYSTEM LEUKOCYTE ESTERASE UA Negative Negative INTERFACE SYSTEM NITRITE UA Negative Negative INTERFACE SYSTEM PROTEIN UA Trace(A) Negative INTERFACE SYSTEM GLUCOSE UA Negative Negative INTERFACE SYSTEM KETONES UA 3+(A) Negative INTERFACE SYSTEM UROBILINOGEN UA <1 <1 mg/dL INTE RFACE SYSTEM BILIRUBIN UA Negative Negative INTERFA CE SYSTEM BLOOD UA Negative Negative INTERFACE SYSTEM WBC UA 1 0 - 5 /HPF INTERFACE SYSTEM RBC UA 2 0 - 4 /HPF INTERFACE SYSTEM BACTERIA UA 1+(A) None Seen /HPF INTERFACE SYSTEM EPITHELIAL CELLS, URINE 2-5 /HPF INTERFACE SYSTEM 06/17/2005 12:4 5 PM COACH OPERATOR Woodypreethi Randall URINE ORDERABLES Final Result INTERFACE SYSTEM Refer to clinic/hospital department documented in this encounter Visit Diagnoses Diagnosis Synovial cyst, unspecified- Primary documented in this encounter Care Teams Pole Incisor Operator Relationship Specialty Start Date End Date Ayo Marin MD [address] [place] [address] PCP - General 06/16/05 documented as of this encounter
--- OUTSIDE RECORDS SUMMARY | 2025-03-03 15:44 | XMS_ITS | Encounter Summary ---
Author Organization [facility] Address [address] [place] [address] Phone Care Team Providers Care Ice Cream Vendor Name Role Phone Rubin Valdez MD Primary Care Provider [phone] Reason for Visit * Reason Comments Medication Refill Encounter Details Date Type Department Care Team (Late st Contact Info) Description 04/08/2021 Refill [facility] - Gastroenterology [facility] [address] [place] [address] Neville Nataly Danielle, PAC [address] [place], [place] [id number] Medication Refill Social History Tobacco Use Types [...] encounter Miscellaneous Notes * Telephone Encounter - Sheeba Valentino RN - 04/08/2021 11:46 AM CDT Medication refilled and signed per [facility] chronic medication standing order for pediatric and adult patients. documented in this encounter Plan of Treatment Not on file documented as of this encounter Visit Diagnoses Diagnosis Gastroesophageal reflux disease, unspecified whether esophagitis present documented in this encounter Care Teams Ice Cream Vendor Relationship Specialty Start Date End Date Rubin Valdez MD [address] [place] [address] PCP - General Family Medicine 06/15/20 documented as of this encounter
--- OUTSIDE RECORDS SUMMARY | 2025-03-03 15:44 | XMS_ITS | Encounter Summary ---
Author Organization [facility] Address [address] [place] [address] Phone Care Team Providers Care List Of First Job Ideas Name Role Phone Rubin Valdez MD Primary Care Provider [phone] Reason for Visit * Reason Comments Medication Refill Encounter Details Date Type Department Care Team ([facility] st Contact Info) Description 07/10/2020 Refill [facility] - Gastroenterology [facility] [address] [place] [address] Nataly Lozada Danielle, PAC [address] [place] [address] Medication Refill Social History Tobacco Use Types [...] on file Sexual Orientation Not on file COVID-19 Exposure Response Date Recorded In the last month, have you been in contact with someone who was confirmed or suspected to have Coronavirus / COVID-19? No / Unsure 07/10/2020 1:42 PM BELT BUILDER documented as of this encounter Functional Status documented as of this encounter Miscellaneous Notes * Telephone Encounter - Sravanthi Bo CMA - 07/10/2020 2:51 PM BELT BUILDER This was for a 90 day request, pharmacy is canceling on their end, they did receive the 30 day prescription and will fill that BUILDER documented in this encounter Plan of Treatment Not on file documented as of this encounter Visit Diagnoses Diagnosis Gastroesophageal reflux disease, unspecified whether esophagitis present documented in this encounter Care Teams List Of First Job Ideas Relationship Specialty Start Date End Date Rubin Valdez MD [address] [place] [address] PCP - General Family Medicine 06/15/20 documented as of this encounter
--- OUTSIDE RECORDS SUMMARY | 2025-03-03 15:44 | XMS_ITS | Encounter Summary ---
Author Organization [facility] Address 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 Gender Identity Not on file Sexual Orientation Not on file documented as of this encounter Plan of Treatment Not on file documented as of this encounter Procedures Procedure Name Priority Date/Time Associated Diagnosis Comments MAMMO DIAGNOSTIC BILATERAL W OR WO CAD Timed Study 02/02/2009 4:09 PM CDT documented in this encounter Results * MAMMO DIGITAL DIAG BILAT (02/02/2009 4:09 PM CDT) Anatomical Region Laterality Modality Breast Bilateral Other 02/02/2009 4:09 PM CDT Narrative 02/04/2009 8:36 AM CDT [address] [address] Admit Date: 02/02/2009 HELENA KC Sex: F Admit Prov: DAPHNE ISABEL Date: 1950 Primary Care Prov: CHATO MURCIA CMRN: [id number] Room: DEVONTE SSN: [id number] IMAGING SERVICES Ordering Prov: DAPHNE ISABEL Accession Number: [id number] Interpretation BILATERAL DIAGNOSTIC DIGITAL MAMMOGRAMS WITH COMPUTER ASSISTED DIAGNOSIS, 02/02/2009 REASON FOR EXAMINATION: Annual study. Followup to right breast nodule. FINDINGS: The parenchyma is moderately dense bilaterally. There are no significant abnormalities on the left. There is an 8 mm sharply marginated nodule in the upper-inner quadrant of the right breast. This has not significantly changed since the mammograms from 11/19/2007. A mammography report dated 03/24/2008 also describes comparing the 2008 study to mammograms from [facility] dated 01/17/2000. That report stated that the nodule was present and unchanged. There is no spiculation, malignant calcification or other sign of malignancy. The images were reviewed using the CAD system. IMPRESSION: No mammographic evidence of malignancy. Stable benign nodule on the right. RECOMMENDATIONS: The patient should resume screening mammography in January 2010. BI-RADS: 2, benign findings. Assessment BIRADS: 2-Benign finding Recommendation: Normal interval follow-up Dictated by: EHSAN MOORE Electronically signed by: EHSAN MOORE 02/04/2009 08:36 Transcribed: 02/04/2009 07:25 DKT Procedure Note Ehsan Moore MD - 02/04/2009 [address] [address] [place], [place] [address] Admit Date: 02/02/2009 HELENA KC Sex: F Admit Prov: DAPHNE ISABEL Date: 1950 Primary Care Prov: CHATO MURCIA CMRN: [id number] Room: DEVONTE SSN: [id number] IMAGING SERVICES Ordering Prov: DAPHNE ISABEL Interpretation BILATERAL DIAGNOSTIC DIGITAL MAMMOGRAMS WITH COMPUTER ASSISTEDDIAGNOSIS, 02/02/2009 REASON FOR EXAMINATION: Annual study. Followup to right breastnodule. FINDINGS: The parenchyma is moderately dense bilaterally. There are nosignificant abnormalities on the left. There is an 8 mm sharply marginated nodule in the upper-innerquadrant of the right breast. This has not significantly changed since themammograms from 11/19/2007. A mammography report dated 03/24/2008 also describes comparing the 2008 study to mammograms from [facility] dated 01/17/2000. That report stated that the nodule was present andunchanged. There is no spiculation, malignant calcification or other sign of malignancy. The images were reviewed using the CAD system. IMPRESSION: No mammographic evidence of malignancy. Stable benign nodule on the right. RECOMMENDATIONS: The patient should resume screening mammography in January 2010. BI-RADS: 2, benign findings. Assessment BIRADS: 2-Benign finding Recommendation: Normal interval follow-up Dictated by: EHSAN MOORE Electronically signed by: EHSAN MOORE 02/04/2009 08:36 Transcribed: 02/04/2009 07:25 DKT us Daphne Isaebl MD MAMMO ORDERABLES Final Resul t documented in this encounter Visit Diagnoses Diagnosis Lump or mass in breast documented in this encounter Care Teams Leakage Tester Relationship Specialty Start Date End Date Ayo Marin MD [address] [place] [address] PCP - General 06/16/05 documented as of this encounter
--- OUTSIDE RECORDS SUMMARY | 2025-03-03 15:44 | XMS_ITS | Encounter Summary ---
Author Organization [facility] Address [address] [place] [address] Care Team Providers Care Forest Pathologist Name Role Phone Ayo Marin MD Primary Care Provider [phone] Encounter Details Date Type Department Care Team (Late st Contact Info) Description 03/24/2008 Outpatient Historical [facility] Daphne Feliz MD [address] [place] [address] [address] [address] Lump or Mass in Breast; Solitary Cyst of Breast Social History Tobacco Use Types Packs/Day Years Used Date Smoking Tobacco: Never Assessed Comments Unknown Sex and Gender Information Value Date Recorded Sex Assigned at Not on file 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 Gender Identity Not on file Sexual Orientation Not on file documented as of this encounter Plan of Treatment Not on file documented as of this encounter Procedures Procedure Name Priority Date/Time Associated Diagnosis Comments US UNLISTED PROCEDURE Routine 03/24/2008 3:20 PM CDT US BREAST BILAT COMPLETE Routine 03/24/2008 3:20 PM CDT MAMMO DIAGNOSTIC UNI RIGHT W OR WO CAD Routine 03/24/2008 3:20 PM CDT documented in this encounter Results * US UNLISTED PROCEDURE (03/24/2008 3:20 PM CDT) Anatomical Region Laterality Modality Other 03/24/2008 3:20 PM CDT Narrative 03/25/2008 9:18 AM CDT [facility] [address] [place], [place] [address] Admit Date: 03/24/2008 HELENA KC Sex: F Admit Prov: DAPHNE ISABEL Date: 1950 Primary Care Prov: CHATO MURCIA CMRN: [id number] Room: [facility] SSN: [address] [place] [address] IMAGING SERVICES Ordering Prov: DAPHNE ISABEL Accession Number: [id number] Interpretation BILATERAL BREAST SONOGRAMS: 2 D AND 3-D IMAGES AND RIGHT DIAGNOSTIC DIGITAL MAMMOGRAMS WITH COMPUTER ASSISTED DIAGNOSIS 03/24/2008 Reason for this examination: Abnormal screening mammograms. The patient had mammograms from [facility] in October and February 2008. These films show a small nodule in the upper central right breast. Left breast: On the sonograms, multiple small cysts are seen in the left breast. None of these measures more than 8 mm in size. There are no solid masses. Right breast: There are no cysts on the right. There is a solitary oval hypoechoic nodule at the 12:00 position. It measures approximately 8 mm in size. This may correspond to the lesion on the mammograms. It could be a cyst with debris or fibroadenoma. Malignancy is much less likely. There are no other focal lesions on the sonograms. Repeat mammograms confirm the presence of a sharply marginated nodule in the upper central right breast. There is no spiculation, malignant calcification or lymphadenopathy. The films were reviewed using the CAD system. The patient does state that she had prior mammograms at some other institution in 2005. [facility] will attempt to obtain either the films or the mammography report for comparison purposes. Conclusion: 8 mm hypoechoic nodule in the upper central right breast. This may be a cyst with debris or fibroadenoma. Malignancy is much less likely. Multiple cysts are seen in the left breast. Recommendations: [facility] will attempt to obtain older mammograms from a different institution for comparison. Overall assessment: BIRADS category 0 - Needs additional imaging evaluation. Dictated by: EHSAN MOORE Electronically signed by: EHSAN MOORE 03/25/2008 09:18 Transcribed: 03/25/2008 08:38 AMK Procedure Note Ehsan Moore MD - 03/25/2008 [facility] [address] [place], [place] [address] Admit Date: 03/24/2008 HELENA KC Sex: F Admit Prov: DAPHNE ISABEL Date: 1950 Primary Care Prov: CHATO MURCIA CMRN: [id number] Room: [facility] SSN: [id number] IMAGING SERVICES Ordering Prov: DAPHNE ISABEL Interpretation BILATERAL BREAST SONOGRAMS: 2 D AND 3-D IMAGES AND RIGHT DIAGNOSTICDIGITAL MAMMOGRAMS WITH COMPUTER ASSISTED DIAGNOSIS 03/24/2008 Reason for this examination: Abnormal screening mammograms. The patient had mammograms from [facility] in October and February 2008. These films show a small nodule in the uppercentral right breast. Left breast: On the sonograms, multiple small cysts are seen in theleft breast. None of these measures more than 8 mm in size. There are nosolid masses. Right breast: There are no cysts on the right. There is a solitaryoval hypoechoic nodule at the 12:00 position. It measures approximately 8mm in size. This may correspond to the lesion on the mammograms. It couldbe a cyst with debris or fibroadenoma. Malignancy is much less likely.There are no other focal lesions on the sonograms. Repeat mammograms confirm the presence of a sharply marginated nodulein the upper central right breast. There is no spiculation, malignant calcification or lymphadenopathy. The films were reviewed using Huaat system. The patient does state that she had prior mammograms at some other institution in 2005. [facility] will attempt to obtain eitherthe films or the mammography report for comparison purposes. Conclusion: 8 mm hypoechoic nodule in the upper central right breast. This may jennifer cyst with debris or fibroadenoma. Malignancy is much less likely. Multiple cysts are seen in the left breast. Recommendations: [facility] will attempt to obtain oldermammograms from a different institution for comparison. Overall assessment: BIRADS category 0 - Needs additional imaging evaluation. Dictated by: EHSAN MOORE Electronically signed by: EHSAN MOORE 03/25/2008 09:18 Transcribed: 03/25/2008 08:38 AMK us Daphne Isabel MD US ORDERABLES Final Result * US BREAST BILATERAL (03/24/2008 3:20 PM CDT) Anatomical Region Laterality Modality Breast Bilateral Other 03/24/2008 3:20 PM CDT Narrative 03/25/2008 9:18 AM CDT [facility] [address] [place], [place] [address] Admit Date: 03/24/2008 HELENA KC Sex: F Admit Prov: CHALO DAPHNE Date: 1950 Primary Care Prov: CHATO MURCIA CMRN: [id number] Room: [facility] SSN: [id number] IMAGING SERVICES Ordering Prov: LUCIANNAHUM DAPHNE Accession Number: [id number] Interpretation BILATERAL BREAST SONOGRAMS: 2 D AND 3-D IMAGES AND RIGHT DIAGNOSTIC DIGITAL MAMMOGRAMS WITH COMPUTER ASSISTED DIAGNOSIS 03/24/2008 Reason for this examination: Abnormal screening mammograms. The patient had mammograms from [facility] in October and February 2008. These films show a small nodule in the upper central right breast. Left breast: On the sonograms, multiple small cysts are seen in the left breast. None of these measures more than 8 mm in size. There are no solid masses. Right breast: There are no cysts on the right. There is a solitary oval hypoechoic nodule at the 12:00 position. It measures approximately 8 mm in size. This may correspond to the lesion on the mammograms. It could be a cyst with debris or fibroadenoma. Malignancy is much less likely. There are no other focal lesions on the sonograms. Repeat mammograms confirm the presence of a sharply marginated nodule in the upper central right breast. There is no spiculation, malignant calcification or lymphadenopathy. The films were reviewed using the CAD system. The patient does state that she had prior mammograms at some other institution in 2005. [facility] will attempt to obtain either the films or the mammography report for comparison purposes. Conclusion: 8 mm hypoechoic nodule in the upper central right breast. This may be a cyst with debris or fibroadenoma. Malignancy is much less likely. Multiple cysts are seen in the left breast. Recommendations: [facility] will attempt to obtain older mammograms from a different institution for comparison. Overall assessment: BIRADS category 0 - Needs additional imaging evaluation. Dictated by: EHSAN MOORE Electronically signed by: EHSAN MOORE 03/25/2008 09:18 Transcribed: 03/25/2008 08:38 AMK Procedure Note Ehsan Moore MD - 03/25/2008 [facility] [address] [place], [place] [address] Admit Date: 03/24/2008 HELENA KC Sex: F Admit Prov: DAPHNE ISABEL Date: 1950 Primary Care Prov: CHATO MURCIA CMRN: [id number] Room: [facility] SSN: [id number] IMAGING SERVICES Ordering Prov: DAPHNE ISABEL Interpretation BILATERAL BREAST SONOGRAMS: 2 D AND 3-D IMAGES AND RIGHT DIAGNOSTICDIGITAL MAMMOGRAMS WITH COMPUTER ASSISTED DIAGNOSIS 03/24/2008 Reason for this examination: Abnormal screening mammograms. The patient had mammograms from [facility] in October and February 2008. These films show a small nodule in the uppercentral right breast. Left breast: On the sonograms, multiple small cysts are seen in theleft breast. None of these measures more than 8 mm in size. There are nosolid masses. Right breast: There are no cysts on the right. There is a solitaryoval hypoechoic nodule at the 12:00 position. It measures approximately 8mm in size. This may correspond to the lesion on the mammograms. It couldbe a cyst with debris or fibroadenoma. Malignancy is much less likely.There are no other focal lesions on the sonograms. Repeat mammograms confirm the presence of a sharply marginated nodulein the upper central right breast. There is no spiculation, malignant calcification or lymphadenopathy. The films were reviewed using Huaat system. The patient does state that she had prior mammograms at some other institution in 2005. [facility] will attempt to obtain eitherthe films or the mammography report for comparison purposes. Conclusion: 8 mm hypoechoic nodule in the upper central right breast. This may jennifer cyst with debris or fibroadenoma. Malignancy is much less likely. Multiple cysts are seen in the left breast. Recommendations: [facility] will attempt to obtain oldermammograms from a different institution for comparison. Overall assessment: BIRADS category 0 - Needs additional imaging evaluation. Dictated by: EHSAN MOORE Electronically signed by: EHSAN MOORE 03/25/2008 09:18 Transcribed: 03/25/2008 08:38 AMK us Daphne Isabel MD US ORDERABLES Final Result * MAMMO DIGITAL DIAG UNI RIGHT (03/24/2008 3:20 PM CDT) Anatomical Region Laterality Modality Breast Right Other 03/24/2008 3:20 PM CDT Narrative 04/09/2008 3:57 PM CDT [address] [address] Admit Date: 03/24/2008 HELENA KC Sex: F Admit Prov: DAPHNE ISABEL Date: 1950 Primary Care Prov: TWIN CHATO M CMRN: [id number] Room: [facility] SSN: [id number] IMAGING SERVICES Ordering Prov: DAPHNE ISABEL Accession Number: [id number] Addendum ADDENDUM TO MAMMOGRAPHY REPORT OF 03/24/2008 Since the prior report, the patient's much older mammograms from [facility] in [place], [place] have become available for review. These are dated 01/17/2000. The current study shows a benign-appearing nodule in the upper-central right breast. There is no spiculation or malignant calcification. On sonograms, this is a hypoechoic lesion suggesting a cyst with debris or a fibroadenoma. There are no definite features to strongly suggest malignancy. This lesion was probably present on the mammograms from 1999. It is much better visualized on the current digital images than on the old filmscreen mammograms. In addition, the parenchyma has become much less dense since 1999, making the nodule more apparent. Conclusion: Benign-appearing nodule in the upper-central right breast. This was probably present on mammograms from 01/17/2000. It is better visualized now on the digital images and due to the fact that there is less dense surrounding parenchyma. Recommendations: A followup right unilateral mammogram in July 2008 is recommended for surveillance. BI-RADS: 3 Assessment BIRADS: 3-Probably benign - short interval follow-up Recommendation: Follow-up at short interval Dictated by: EHSAN MOORE Electronically signed by: EHSAN MOORE 04/09/2008 15:57 Transcribed: 04/09/2008 15:13 DKT Interpretation BILATERAL BREAST SONOGRAMS: 2 D AND 3-D IMAGES AND RIGHT DIAGNOSTIC DIGITAL MAMMOGRAMS WITH COMPUTER ASSISTED DIAGNOSIS 03/24/2008 Reason for this examination: Abnormal screening mammograms. The patient had mammograms from [facility] in October and February 2008. These films show a small nodule in the upper central right breast. Left breast: On the sonograms, multiple small cysts are seen in the left breast. None of these measures more than 8 mm in size. There are no solid masses. Right breast: There are no cysts on the right. There is a solitary oval hypoechoic nodule at the 12:00 position. It measures approximately 8 mm in size. This may correspond to the lesion on the mammograms. It could be a cyst with debris or fibroadenoma. Malignancy is much less likely. There are no other focal lesions on the sonograms. Repeat mammograms confirm the presence of a sharply marginated nodule in the upper central right breast. There is no spiculation, malignant calcification or lymphadenopathy. The films were reviewed using the CAD system. The patient does state that she had prior mammograms at some other institution in 2005. [facility] will attempt to obtain either the films or the mammography report for comparison purposes. Conclusion: 8 mm hypoechoic nodule in the upper central right breast. This may be a cyst with debris or fibroadenoma. Malignancy is much less likely. Multiple cysts are seen in the left breast. Recommendations: [facility] will attempt to obtain older mammograms from a different institution for comparison. Overall assessment: BIRADS category 0 - Needs additional imaging evaluation. Report revised on 04/09/2008 3:57:00 PM by EHSAN MOORE Assessment BIRADS: 0-Incomplete: Need additional imaging evaluation Recommendation: Old films for comparison Dictated by: EHSAN MOORE Electronically signed by: EHSAN MOORE 03/25/2008 09:18 Transcribed: 03/25/2008 08:38 AMK Procedure Note Ehsan Moore MD - 04/09/2008 [facility] [address] [place], [place] [address] Admit Date: 03/24/2008 HELENA KC Sex: F Admit Prov: DAPHNE ISABEL Date: 1950 Primary Care Prov: CHATO MURCIA CMRN: [id number] Room: [facility] SSN: [id number] IMAGING SERVICES Ordering Prov: DAPHNE ISABEL Addendum ADDENDUM TO MAMMOGRAPHY REPORT OF 03/24/2008 Since the prior report, [facility] [place] [place] have become available for review.These are dated 01/17/2000. The current study shows a benign-appearing nodule in theupper-central right breast. There is no spiculation or malignant calcification.On sonograms, this is a hypoechoic lesion suggesting a cyst with debrisor a fibroadenoma. There are no definite features to strongly suggest malignancy. This lesion was probably present on the mammograms from 1999. It ismuch better visualized on the current digital images than on the oldfilmscreen mammograms. In addition, the parenchyma has become much less densesince 1999, making the nodule more apparent. Conclusion: Benign-appearing nodule in the upper-central rightbreast. This was probably present on mammograms from 01/17/2000. It is bettervisualized now on the digital images and due to the fact that there is lessdense surrounding parenchyma. Recommendations: A followup right unilateral mammogram in July2008 is recommended for surveillance. BI-RADS: 3 Assessment BIRADS: 3-Probably benign - short interval follow-up Recommendation: Follow-up at short interval Dictated by: EHSAN MOORE Electronically signed by: EHSAN MOORE 04/09/2008 15:57 Transcribed: 04/09/2008 15:13 DKT Interpretation BILATERAL BREAST SONOGRAMS: 2 D AND 3-D IMAGES AND RIGHT DIAGNOSTICDIGITAL MAMMOGRAMS WITH COMPUTER ASSISTED DIAGNOSIS 03/24/2008 Reason for this examination: Abnormal screening mammograms. The patient had mamm[facility] in October and February 2008. These films show a small nodule in the uppercentral right breast. Left breast: On the sonograms, multiple small cysts are seen in theleft breast. None of these measures more than 8 mm in size. There are nosolid masses. Right breast: There are no cysts on the right. There is a solitaryoval hypoechoic nodule at the 12:00 position. It measures approximately 8mm in size. This may correspond to the lesion on the mammograms. It couldbe a cyst with debris or fibroadenoma. Malignancy is much less likely.There are no other focal lesions on the sonograms. Repeat mammograms confirm the presence of a sharply marginated nodulein the upper central right breast. There is no spiculation, malignant calcification or lymphadenopathy. The films were reviewed using Huaat system. The patient does state that she had prior mammograms at some other institution in 2005. [facility] will attempt to obtain eitherthe films or the mammography report for comparison purposes. Conclusion: 8 mm hypoechoic nodule in the upper central right breast. This may jennifer cyst with debris or fibroadenoma. Malignancy is much less likely. Multiple cysts are seen in the left breast. Recommendations: [facility] will attempt to obtain oldermammograms from a different institution for comparison. Overall assessment: BIRADS category 0 - Needs additional imaging evaluation. Report revised on 04/09/2008 3:57:00 PM by EHSAN MOORE Assessment BIRADS: 0-Incomplete: Need additional imagingevaluation Recommendation: Old films for comparison Dictated by: EHSAN MOORE Electronically signed by: EHSAN MOORE 03/25/2008 09:18 Transcribed: 03/25/2008 08:38 AMK us Daphne Isabel MD MAMMO ORDERABLES Edited documented in this encounter Visit Diagnoses Diagnosis Lump or mass in breast Solitary cyst of breast documented in this encounter Care Teams Forest Pathologist Relationship Specialty Start Date End Date Ayo Marin MD [address] [place] [address] PCP - General 06/16/05 documented as of this encounter
--- OUTSIDE RECORDS SUMMARY | 2025-03-03 15:44 | XMS_ITS | Clinical Summary ---
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 Gender Identity Not on file Sexual Orientation Not on file Plan of Treatment Health Maintenance Due Date Last Done Comments DTAP/TDAP/TD VACCINES (1 - Tdap) 1971 COLORECTAL SCREENING 1997 Colorectal Cancer Screening 1997 FIT-DNA Q 3 years 1997 FIT/FOBT Q 1 year 1997 Flex Sig/CT Colonography Q 5 years 1997 PNEUMOCOCCAL VACCINE 50+ YEA RS (1 of 1 - PCV) 2002 ZOSTER VACCINE (1 of 2) 2002 BREAST CANCER SCREENING 02/02/2010 02/02/2009, 03/24 OSTEOPOROSIS SCREENING 2017 INFLUENZA VACCINE (#1) 2025 RSV VACCINE (60+ or ) (1 - 1-dose 75+ series) 2027 Procedures Procedure Name Priority Date/Time Associated Diagnosis Comments MAMMO DIAGNOSTIC BILATERAL W OR WO CAD Timed Study 02/02/2009 4:09 PM CDT from Last 3 Months or Most Recently Relevant to Health Maintenance Results * MAMMO DIGITAL DIAG BILAT (02/02/2009 4:09 PM CDT) Anatomical Region Laterality Modality Breast Bilateral Other 02/02/2009 4:09 PM CDT Narrative 02/04/2009 8:36 AM CDT [place] [address] [facility] [place] [place] [address] Admit Date: 02/02/2009 HELENA KC Sex: F Admit Prov: DAPHNE ISABEL Date: 1950 Primary Care Prov: CHATO MURCIA CMRN: [id number] Room: [facility] SSN: [id number] IMAGING SERVICES Ordering Prov: DAPHNE ISABEL Accession Number: [id number] Interpretation BILATERAL DIAGNOSTIC DIGITAL MAMMOGRAMS WITH COMPUTER [...] comparing the 2008 study to mammograms from [facility] dated 01/17/2000. That report stated that the [...] EHSAN MOORE 02/04/2009 08:36 Transcribed: 02/04/2009 07:25 COUNTS INCLUDE 234 BEDS AT THE [facility] Procedure Note Ehsan Moore MD - 02/04/2009 [place] [address] [place], [place] [address] Admit Date: 02/02/2009 HELENA KC Sex: F Admit Prov: DAPHNE ISABEL Date: 1950 Primary Care Prov: CHATO MURCIA CMRN: [id number] Room: [facility] SSN: [id number] IMAGING SERVICES Ordering Prov: DAPHNE ISABEL Interpretation [...] comparing the 2008 study to mammograms from [facility] dated 01/17/2000. That report stated that the [...] MOORE 02/04/2009 08:36 Transcribed: 02/04/2009 07:25 DKT Daphne Isabel MD MAMMO ORDERABLES Final Resul t from Last 3 Months or Most Recently Relevant to Health Maintenance Care Teams Cider Press Operator Relationship Specialty Start Date End Date Ayo Marin MD [address] [place] [id number] PCP - General 06/16/05
--- OUTSIDE RECORDS SUMMARY | 2025-03-03 15:44 | XMS_ITS | Referral Summary ---
Author Organization [facility] [place] [address] Address [address] [place] [address] Care Team Providers Care Hand Binder Cutter Name Role Phone Pedro Petty MD Unavailable [phone] Vivienne Ac MD Primary Care Provider [phone] Allergies Active Allergy Reactions Criticality Noted Date Comments Cefadroxil Hives,Urticaria Medium 05/24/2019 Erythromycin Stomach upset Low Influenza Virus Vaccines Amlodipine-Benazepril Cough Low 05/24/2019 Nitrofurantoin Chest tightness,Joint pain,Cough High Reaction: Chest Pain, Joint Pain, Cough, Omeprazole Anxiety,Other (See comments),Chest tightness,Nausea only Medium angina Ondansetron Nausea only Low Penicillins Hives,Urticaria High Reaction: Hives, Urticaria, Pregabalin Other (See comments) High Reaction: Urinary Retention, Spironolactone Diarrhea Medium 02/17/2023 Abdominal pain Rofecoxib Other (See comments) Low 05/24/2019 GI upset Medications meloxicam (MOBIC) 15 mg tablet Take 1 tablet (15 mg total) by mouth as needed Active diazePAM (VALIUM) 5 mg tablet Take 0.5 tablets (2.5 mg total) by mouth daily as needed 2 9 Active loperamide (IMODIUM) 2 mg capsule Take by mouth as needed Active pantoprazole DR (PROTONIX) 40 mg EC tablet Take 1 tablet (40 mg total) by mouth daily 1 Active pravastatin (PRAVACHOL) 10 mg tabletIndications:M ixed hyperlipidemia TAKE 1 TABLET BY MOUTH DAILY 90 tablet 2 2 Active potassium citrate ER (UROCIT-K) 10 mEq (1,080 mg) CR tablet Take 2 tablets (20 mEq total) by mouth daily Active cholecalciferol (VITAMIN D-3) 2000 unit tablet Take 1 tablet (2,000 Units total) by mouth daily Active acetaminophen (TYLENOL) 325 mg tablet Take 2 tablets (650 mg total) by mouth every 6 (six) hours as needed for pain Active AMILoride (MIDAMOR) 5 mg tablet Take 0.5 tablets (2.5 mg total) by mouth daily Active doxazosin (CARDURA) 1 mg tabletIndications:E ssential (primary) hypertension Take 1 tablet (1 mg total) by mouth nightly 60 tablet 5 4 Active carvediloL (COREG) 12.5 mg tablet Take 1 tablet (12.5 mg total) by mouth 3 (three) times a day 270 tablet 1 5 Active Active Problems Problem Noted Date Diagnosed Date Lesion of left lower eyelid 10/28/2023 Assessment & Plan (10/28/2023 12:50 AM CDT): Risks, benefits and alternatives were discussed. Risks included but were not limited to pain, bleeding, scarring, recurrence, and possible need for additional procedures. Following this discussion, the patient wishes to proceed with left lower lid (LLL) lesion excision. This was performed today without any complications. They will follow-up as needed. Disorder of refraction 10/17/2023 Assessment & Plan (11/20/2023 12:20 PM CDT): Release Mrx Intractable chronic migraine without aura and without status migrainosus 08/07/2023 Anxiety 08/07/2023 GERD (gastroesophageal reflux disease) 2 Stage 3a chronic kidney disease 07/14/2021 Psychosocial stressors 04/15/2019 Glucose intolerance 06/08/2018 Overweight (BMI 25.0-29.9) 06/08/2018 Mixed hyperlipidemia 04/11/2018 Controlled type 2 diabetes m ellitus without complication, without long-term current use of insulin 04/11/2018 Medication intolerance 04/11/2018 Benign neoplasm of cerebral meninges (CMS/HCC) 0 01/14/2015 Overview (09/27/2021): Converted unresolved ICD9, potential mismatch. Essential (primary) hypertension 01/14/2015 Abnormal mammogram 08/08/2014 Lesion of brain 08/22/2013 Resolved Problems Problem Noted Date Diagnosed Date Resolved Date CKD stage 4 secondary to hypertension 07/14/2021 07/14/2021 Migraine headache 08/16/2013 12/29/2023 Immunizations Immunization Administration Dates Next Due Influenza, Trivalent, Preservative Free, Intramu scular 07/31/2014,04/16/2013 Social History Tobacco Use Types Packs/Day Years Used Date Smoking Tobacco: Never Smokeless Tobacco: Never Tobacco Cessation:Counseling Given: Not Answered Alcohol Use Standard Drinks/Week Comments No 0 (1 standard drink = 0.6 oz pur e alcohol) Comments Unknown Sex and Gender Information Value Date Recorded Sex Assigned at Not on file 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 Gender Identity Not on file Sexual Orientation Not on file Occupation Industry Job Start Date Job End Date Retired Not on file Not on file Not on file Last Filed Vital Signs Vital Sign Reading Time Taken Comments Blood Pressure 158/80 11/29/2024 2:00 PM CDT Pulse 58 11/29/2024 2:00 PM CDT Temperature 36.4 C (97.6 F) 03/03/2023 11:11 AM CDT Respiratory Rate 18 03/03/2023 10:00 PM CDT Oxygen Saturation 96% 11/29/2024 2:00 PM CDT Inhaled Oxygen Concentration - - Weight 72.1 kg (159 lb) 11/29/2024 2:00 PM CDT Height 157.5 cm (5' 2) 11/29/2024 2:00 PM CDT Body Mass Index 29.08 11/29/2024 2:00 PM CDT Plan of Treatment Not on file Procedures Procedure Name Priority Date/Time Associated Diagnosis Comments POCT LIPID PANEL Routine 11/29/2024 1:54 PM CDT Mixed hyperlipidemia EGFR STAT 03/03/2023 12:56 PM CDT DIAGNOSTIC MAMMOGRAM BILATERAL W RENAN Routine 01/02/2015 3:40 PM CDT from Last 3 Months or Most Recently Relevant to Health Maintenance Results * POCT lipid panel (11/29/2024 1:54 PM CDT) Cholesterol, POC 163 <200 MG/DL HDL, POC 57 >=40 mg/dL Triglycerides, POC 148 <=149 mg/dL LDL Cholesterol POC 77 <=129 mg/dL Chol/HDL Ratio, POC 1.3 NONE Non-HDL Cholesterol, POC 106 NONE mg/dL Cholesterol Total, POC 163 30 - 199 mg/dL Capillary blood 11/29/2024 1 :54 PM CDT us Anastasia Keenan MD POINT OF CARE TEST ORDE LAURA Final Result * (ABNORMAL) eGFR (03/03/2023 12:56 PM CDT) eGFR 55(L) 90 - 130 mL/min/1. 73 m2 [facility] Comment: Interpretive Data Reference Interval Normal >/= 90 mL/min/1.73m2 Mildly decreased* 60 - 89 mL/min/1.73m2 Mildly to moderately decreased 45 - 59 mL/min/1.73m2 Moderately to severely decreased 30 - 44 mL/min/1.73m2 Severely decreased 15 - 29 mL/min/1.73m2 Kidney Failure < 15 mL/min/1.73m2 *Relative to young adult level Estimated glomerular filtration rate is determined by the 2020 CKD-EPI equation recommended by the National Kidney Foundation (A Unifying Approach to GFR Estimation: Recommendations of the NKF-ASK Task Force on Reassessing the Inclusion of Race in Diagnosing Kidney Disease, JASN 202). The CKD-EPI equation should not be used for patients with unstable renal function and has not been validated in children and those over 70. Current interpretive data was last reviewed 2021. Blood 03/03/2023 12:5 6 PM CDT 03/03/2023 1:25 PM CDT us Bib Doan MD LAB BLOOD ORDERABLES Final Result [facility] Department [place] [address] * DIAGNOSTIC MAMMOGRAM BILATERAL W RENAN (01/02/2015 3:40 PM CDT) Anatomical Region Laterality Modality Breast Bilateral Mammography 01/02/2015 3:40 PM CDT Narrative 01/02/2015 4:53 PM CDT KWASI WTASON M.D. PUJA KEENAN, FINAL REPORT The radiology attending physician has personally reviewed this study, and has reviewed and/or edited this written report and agrees with it. ACC# Date Time Exam [id number] Jan 02, 2015 15:40:00 [facility] [id number] Diag Mammogram Bilateral Technologist(s): Melly Mcmullen; ; [id number] Jan 02, 2015 15:40:00 [facility] 25323 Breast US unilateral, ltd L [id number] Jan 02, 2015 15:40:00 [facility] 24345 Dig Breast Renan Jackson ACC# Date Time Exam [id number] Jan 02, 2015 15:40:00 [facility] [id number] Diag Mammogram Bilateral Technologist(s): Melly Mcmullen; ; [id number] Jan 02, 2015 15:40:00 [facility] 92850 Breast US unilateral, ltd L [id number] Jan 02, 2015 15:40:00 [facility] 45836 Dig Breast Renan Jackson EXAMINATION: BILATERAL FULL FIELD DIGITAL DIAGNOSTIC MAMMOGRAM WITH CAD AND BILATERAL DIGITAL BREAST TOMOSYNTHESIS AND LEFT BREAST SONOGRAM HISTORY: Follow-up of a benign mass in the left breast. MAMMOGRAM TECHNIQUE: Full field digital craniocaudal and mediolateral oblique views of both breasts were obtained utilizing full field digital mammography. Computer Aided Detection was performed with [employer].3 version 9.3. Digital breast tomosynthesis was performed and reviewed as a part of this examination. COMPARISON: 08/08/2014, 01/10/2014 and 02/14/2013. BREAST PARENCHYMAL COMPOSITION: The breasts are heterogeneously dense, which may obscure small masses. MAMMOGRAM FINDINGS: There are no new suspicious abnormalities seen within either breast on mammogram. There are stable benign appearing masses and scattered benign calcifications in both breasts. SONOGRAM FINDINGS: Directed sonogram of the lower outer left breast was performed. There is a stable hypoechoic round mass measuring 2 x 3 x 4 mm at the 4 o'clock position 3 cm from the nipple likely representing a cyst. This is considered benign given its benign morphology and stability since January 2013. Incidental note of a 7 mm simple cyst at the 3 o'clock position 1 cm from the nipple. IMPRESSION: 1. Unchanged benign appearing 4 mm mass at the 4 o'clock position 3 cm from the nipple of the left breast. Annual screening mammography is recommended. OVERALL FINAL ASSESSMENT: BI-RADS Category 2: Benign finding. Requested By: Dictated By: PUJA KEENAN on Jan 02 2015 4:28P This document has been electronically signed by: KWASI WATSON M.D. on Jan 02 2015 4:53P [id number] Procedure Note Provider, MD Bill - 11/29/2016 KWASI WATSON M.D. PUJA KEENAN, FINAL REPORT The radiology attending physician has personally reviewed this study, and has reviewed and/or edited this written report and agrees with it. ACC# Date Time Exam [id number] Jan 02, 2015 15:40:00 [facility] [id number] Diag Mammogram Bilateral Technologist(s): Melly Mcmullen; ; [id number] Jan 02, 2015 15:40:00 [facility] 50005 Breast US unilateral, ltd L [id number] Jan 02, 2015 15:40:00 [facility] 97563 Dig Breast Renan Jackson ACC# Date Time Exam [id number] Jan 02, 2015 15:40:00 [facility] 34708 Diag Mammogram Bilateral Technologist(s): Melly Mcmullen; ; [id number] Jan 02, 2015 15:40:00 [facility] 69781 Breast US unilateral, ltd L [id number] Jan 02, 2015 15:40:00 [facility] 83369 Dig Breast Renan Jackson EXAMINATION: BILATERAL FULL FIELD DIGITAL DIAGNOSTIC MAMMOGRAM WITH CAD AND BILATERAL DIGITAL BREAST TOMOSYNTHESIS AND LEFT BREAST SONOGRAM HISTORY: Follow-up of a benign mass in the left breast. MAMMOGRAM TECHNIQUE: Full field digital craniocaudal and mediolateral oblique views of both breasts were obtained utilizing full field digital mammography. Computer Aided Detection was performed with [employer].3 version 9.3. Digital breast tomosynthesis was performed and reviewed as a part of this examination. COMPARISON: 08/08/2014, 01/10/2014 and 02/14/2013. BREAST PARENCHYMAL COMPOSITION: The breasts are heterogeneously dense, which may obscure small masses. MAMMOGRAM FINDINGS: There are no new suspicious abnormalities seen within either breast on mammogram. There are stable benign appearing masses and scattered benign calcifications in both breasts. SONOGRAM FINDINGS: Directed sonogram of the lower outer left breast was performed. There is a stable hypoechoic round mass measuring 2 x 3 x 4 mm at the 4 o'clock position 3 cm from the nipple likely representing a cyst. This is considered benign given its benign morphology and stability since January 2013. Incidental note of a 7 mm simple cyst at the 3 o'clock position 1 cm from the nipple. IMPRESSION: 1. Unchanged benign appearing 4 mm mass at the 4 o'clock position 3 cm from the nipple of the left breast. Annual screening mammography is recommended. OVERALL FINAL ASSESSMENT: BI-RADS Category 2: Benign finding. Requested By: Dictated By: PUJA KEENAN on Jan 02 2015 4:28P This document has been electronically signed by: KWASI WATSON M.D. on Jan 02 2015 4:53P [id number] Historical Provider MD [facility] MAMMO PROCEDURES Keila l Result from Last 3 Months or Most Recently Relevant to Health Maintenance Insurance [facility] MEDICARE MEDICARE [facility] MEDICARE [facility] Care Teams Hand Binder Cutter Relationship Specialty Start Date End Date Vivienne Ac MD PCP - General Family Medicine 08/05/22 Pedro Petty MD Consulting Physician Neurosurgery 09/27/21
--- OUTSIDE RECORDS SUMMARY | 2025-03-03 15:44 | XMS_ITS | Clinical Summary ---
Author Organization [facility] [place] [address] Address [address] [place] [address] Care Team Providers Care Belt Puncher Name Role Phone Pedro Petty MD Unavailable [phone] Vivienne Ac MD Primary Care Provider [phone] Allergies Active Allergy Reactions Criticality Noted Date [...] Influenza, Trivalent, Preservative Free, Intramu scular 07/31/2014,04/16/2013 Surgical History Surgery Date Site/Laterality Comments NV LAPS FULG/EXC OVARY VISCERA/PERITONEAL SURFACE Laparoscopic Excision Gynecologic Lesions Right Ovary - (Added by TW Conv) MOHS SURGERY Mohs Micrographic Surgery Face - (Added by TW Conv) LUMBAR DISC SURGERY Spinal Diskectomy Lumbar - (Added by TW Conv) NV CYSTO W/INSERT URETERAL STENT Cystoscopy With Insertion Of Ureteral Stent Left - (Added by TW Conv) NV CYSTO W/URETEROSCOPY W/RMVL/MANJ STONES Cystoscopy With Pyeloscopy With Removal Of Calculus - (Added by TW Conv) NV UNLISTED PROCEDURE BREAST Breast Surgery - excision (Added by TW Conv) PELVIC LAPAROSCOPY Medical History Medical History Date Comments Personal history of other en docrine, nutritional and metabolic disease History of diabetes mellitus - (Added by TW Conv) Personal history of other di seases of the circulatory system History of hypertension - (A dded by TW Conv) Acquired cyst of kidney Renal cy st, left - (Added by TW Conv) Personal history of malignan t neoplasm of other organs and systems History of squamous cell car cinoma - (Added by TW Conv) Other bursal cyst, unspecified site Synovial cyst - removed (Added by TW Conv) Acid indigestion Skin cancer Bladder infection Kidney stones Hypertension Hyperlipidemia Diabetes mellitus (HCC) Meningioma (HCC) Kidney stone Chronic back pain History of angiography [employer] placed 09/06/2013 Family History Medical History Relation Name Comments AIDS Brother Alzheimer's disease Father Atrial fibrillation Father Family h istory of atrial fibrillation - (Added by TW Conv) Colon cancer Father Family history of colon cancer - (Added by TW Conv) Diabetes Father Family history of diabetes mellitus - (Added by TW Conv) Hypertension Father Family history of hypertension - (Added by TW Conv) Prostate cancer Father Prostate can cer - (Added by Conv) Heart attack Father's Brother Family hist ory of acute myocardial infarction - (Added by Conv) Heart attack Maternal Grandfather Family history of acute myocardial infarction - Relation: Grandfather (Added by TW Conv) Alzheimer's disease Mother Hypertension Mother Family history of hypertension - (Added by TW Conv) Macular degeneration Mother Heart attack Other 1 Family history of acute myocardial infarction - Relation: Grandmother (Added by Conv) Brain cancer Other 2 Brain tumor - R elation: Aunt (Added by Conv) Blindness Neg Hx Glaucoma Neg Hx Relation Name Status Comments Brother Father Father's Brother Maternal Grandfather Mother Alive Other 1 Other 2 Sister Alive Social History Tobacco Use Types Packs/Day Years Used Date Smoking Tobacco: Never Smokeless Tobacco: Never Tobacco Cessation:Counseling Given: Not Answered Alcohol Use Standard Drinks/Week Comments No 0 (1 standard drink = 0.6 oz pur e alcohol) Comments Unknown Sex and Gender Information Value Date Recorded Sex Assigned at Not on file 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 Gender Identity Not on file Sexual Orientation Not on file Occupation Industry Job Start Date Job End Date Retired Not on file Not on file Not on file Obstetrics History Last Filed Vital Signs Vital Sign Reading [...] 11/29/2024 2:00 PM CDT Plan of Treatment Health Maintenance Due Date Last Done Comments Albumin Creatinine Ratio, Urine 1952 Colon Cancer Screening-Colonoscopy 1952 Depression Screening 1952 Fall Risk Assessment 1952 Hemoglobin A1C 1952 Hepatitis C Screening 1952 Osteoporosis Screening-Bone Density Scan 1952 Foot Exam 1952 DTaP/Tdap/Td Vaccine (1 - Tdap) 1963 Hepatitis B Screening 1970 Pneumococcal vaccine 65+ (1 of 2 - PCV) 1971 Zoster Vaccine (1 of 2) 2002 Breast Cancer Screening-Mammogram 01/03/2016 015 Well Visit 65+ 2017 Dilated Eye Exam 01/24/2023 01/24/2022, 09/27/2021 eGFR 03/03/2024 03/03/2023, 03/01/2023 Covid-19 Vaccine ( - 2023-2 5 season) 2024 05/02/2021, 10/24/2020, 09/29/2020 Influenza Vaccine (#1) 2025 , 06/08/2020, 07/31/2014, Additional history exists Lipid Panel 11/29/2025 11/29/2024, 02/2024, 08/05/2022, Additional history exists Procedures Procedure Name Priority Date/Time Associated Diagnosis [...] Anastasia Keenan MD POINT OF CARE TEST ORDHira SANCHEZ Final Result * (ABNORMAL) eGFR (03/03/2023 12:56 PM CDT) eGFR 55(L) 90 - 130 mL/min/1. [address] [facility] Comment: Interpretive Data Reference Interval Normal >/= [...] of Race in Diagnosing Kidney Disease, JASN 2020). The CKD-EPI equation should not be used for patients with unstable renal function and has not been validated in children and those over 70. Current interpretive data was last reviewed 2021. Blood 03/03/2023 12:5 6 PM CDT 03/03/2023 1:25 PM CDT us Bib Doan MD LAB BLOOD ORDERABLES Final Result [facility] [place] [address] * DIAGNOSTIC MAMMOGRAM BILATERAL W RENAN (01/02/2015 3:40 PM CDT) Anatomical Region Laterality Modality Breast Bilateral Mammography 01/02/2015 3:40 PM CDT Narrative 01/02/2015 4:53 PM CDT KWASI WATSON M.D. PUJA KEENAN, FINAL REPORT The radiology attending physician has personally reviewed this study, and has reviewed and/or edited this written report and agrees with it. ACC# Date Time Exam [id number] Jan 02, 2015 15:40:00 [facility] 79194 Diag Mammogram Bilateral Technologist(s): Melly Mcmullen; ; [id number] Jan 02, 2015 15:40:00 [facility] 47123 Breast US unilateral, ltd L [id number] Jan 02, 2015 15:40:00 [facility] 94569 Dig Breast Renan Jackson ACC# Date Time Exam [id number] Jan 02, 2015 15:40:00 [facility] 21443 Diag Mammogram Bilateral Technologist(s): Melly Mcmullen; ; [id number] Jan 02, 2015 15:40:00 [facility] 57239 Breast US unilateral, ltd L [id number] Jan 02, 2015 15:40:00 [facility] 84121 Dig Breast Renan Jackson EXAMINATION: BILATERAL FULL FIELD DIGITAL DIAGNOSTIC MAMMOGRAM WITH CAD AND BILATERAL DIGITAL BREAST TOMOSYNTHESIS AND LEFT BREAST SONOGRAM HISTORY: Follow-up of a benign mass in the left breast. MAMMOGRAM TECHNIQUE: Full field digital craniocaudal and mediolateral oblique views of both breasts were obtained utilizing full field digital mammography. Computer Aided Detection was performed with [employer].3 version 9.3. Digital breast tomosynthesis was performed [...] WATSON M.D. on Jan 02 2015 4:53P [id number] Procedure Note Provider, MD Bill - 11/29/2016 KWASI WATSON M.D. PUJA KEENAN, FINAL REPORT The radiology attending physician has personally reviewed this study, and has reviewed and/or edited this written report and agrees with it. ACC# Date Time Exam [id number] Jan 02, 2015 15:40:00 [facility] 66037 Diag Mammogram Bilateral Technologist(s): Melly Mcmullen; ; [id number] Jan 02, 2015 15:40:00 [facility] 76430 Breast US unilateral, ltd L [id number] Jan 02, 2015 15:40:00 [facility] 28265 Dig Breast Renan Jackson ACC# Date Time Exam [id number] Jan 02, 2015 15:40:00 [facility] 44604 Diag Mammogram Bilateral Technologist(s): Melly Mcmullen; ; [id number] Jan 02, 2015 15:40:00 [facility] 45795 Breast US unilateral, ltd L [id number] Jan 02, 2015 15:40:00 [facility] 25020 Dig Breast Renan Jackson EXAMINATION: BILATERAL FULL FIELD DIGITAL DIAGNOSTIC MAMMOGRAM WITH CAD AND BILATERAL DIGITAL BREAST TOMOSYNTHESIS AND LEFT BREAST SONOGRAM HISTORY: Follow-up of a benign mass in the left breast. MAMMOGRAM TECHNIQUE: Full field digital craniocaudal and mediolateral oblique views of both breasts were obtained utilizing full field digital mammography. Computer Aided Detection was performed with [employer] version 9.3. Digital breast tomosynthesis was performed [...] WATSON M.D. on Jan 02 2015 4:53P [id number] Historical Provider MD [facility] MAMMO PROCEDURES Keila schmitt Result from Last 3 Months or Most Recently Relevant to Health Maintenance Insurance [facility] MEDICARE MEDICARE [facility] MEDICARE [facility] Care Teams Belt Puncher Relationship Specialty Start Date End Date Vivienne Ac MD PCP - General Family Medicine 08/05/22 Pedro Petty MD Consulting Physician Neurosurgery 09/27/21
--- OUTSIDE RECORDS SUMMARY | 2025-03-03 15:44 | XMS_ITS | Encounter Summary ---
Author Organization [facility] Address [address] [place] [address] Phone Care Team Providers Care Content Director Name Role Phone Rubin Valdez MD Primary Care Provider [phone] Reason for Visit * Reason Comments Medication Refill Encounter Details Date Type Department Care Team ([facility] st Contact Info) Description 11/03/2020 Refill [facility] - Gastroenterology [facility] [address] [place] [address] Neville Nataly Danielle, PAC [address] [place] [address] Medication Refill Social History Tobacco [...] encounter Miscellaneous Notes * Telephone Encounter - Dottie Lopez, [facility] - 11/04/2020 1:18 PM CDT Pt is requesting rx refill: Last appt: 07/19/20 Last filled: 07/30/20 Next appt: None Medication pended documented in this encounter Plan of Treatment Not on file documented as of this encounter Visit Diagnoses Diagnosis Gastroesophageal reflux disease, unspecified whether esophagitis present documented in this encounter Care Teams Content Director Relationship Specialty Start Date End Date Rubin Valdez MD [address] [address] PCP - General Family Medicine 06/15/20 documented as of this encounter
--- OUTSIDE RECORDS SUMMARY | 2025-03-03 15:44 | XMS_ITS | Encounter Summary ---
Author Organization [facility] Address [address] [place] [address] Care Team Providers Care Network Pricing Consultant Name Role Phone Ayo Marin MD Primary Care Provider [phone] Encounter Details Date Type Department Care Team (Late st Contact Info) Description 06/17/2005 Outpatient Historical [facility] Support [facility]. ([facility]t Cardiology[facility]) [address] 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
--- OUTSIDE RECORDS SUMMARY | 2025-03-03 15:44 | XMS_ITS | Encounter Summary ---
Author Organization [facility] Address 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) Social History Tobacco Use Types Packs/Day Years Used Date Smoking Tobacco: Never Assessed Comments Unknown Sex and Gender Information Value Date Recorded Sex Assigned at Not on file Legal Sex Female 4:[address] [address] [employer] Gender Identity Not on file Sexual Orientation Not on file documented as of this encounter Plan of Treatment Not on file documented as of this encounter Visit Diagnoses Diagnosis Other and unspecified disc disorder of unspecified region- Primary documented in this encounter Care Teams Manager Staffing Relationship Specialty Start Date End Date Ayo Marin MD [address] [place] [id number] PCP - General 06/16/05 documented as of this encounter
== END 2025-03-03 15:42 | disposition home or self-care (01) ==
PROVIDERS: PCP Family Medicine
DX: D32.0 Benign neoplasm of cerebral meninges (principal); I67.82 Cerebral ischemia
CPT/HCPCS: 70553; A9577